=== PATIENT | female | born 1985 | race Caucasian/White ===

== ENCOUNTER 2022-11-09 03:27 | Inpatient (IN) | payer BC, SELFPAY ==
[2022-11-09] VITALS (29 sets, daily range): BP systolic 85–124; BP diastolic 44–76; PULSE 78–101; RESP 12–22; TEMP 36.5–43; O2SAT 91–100; BMI 44.4; BMI 44.1
--- NOTE | 2022-11-09 03:47 | CT_ITS ---
PROCEDURE INFORMATION: Exam: CT Abdomen And Pelvis With Contrast Exam date and time: 11/09/2022 4:24 AM Age: 37 years old Clinical indication: Abdominal pain; Prior surgery; Surgery type: Gastric sleeve; Patient HX: C/O generalized abd pain and pelvic pain x1 week. Worsening within last 2 days TECHNIQUE: Imaging protocol: Computed tomography of the abdomen and pelvis with contrast. Radiation optimization: All CT scans at this facility use at least one of these dose optimization techniques: automated exposure control; mA and/or kV adjustment per patient size (includes targeted exams where dose is matched to clinical indication); or iterative reconstruction. Contrast material: ISOVUE; Contrast volume: 75 ml; Contrast route: IV; COMPARISON: No relevant prior studies available. FINDINGS: Diaphragm: Small hiatal hernia. Liver: Mildly enlarged. Gallbladder and bile ducts: No calcified stones. No ductal dilation. Pancreas: Unremarkable. No ductal dilation. Spleen: Mildly enlarged. Adrenal glands: No mass. Kidneys and ureters: Unremarkable. No significant hydronephrosis. Stomach and bowel: Postsurgical changes of stomach. Fluid within small bowel. Fluid/loose stool within large bowel. Apparent mild mural/fold thickening of several loops of proximal and mid small bowel. No associated inflammatory stranding. No obstruction. Appendix: No findings to suggest appendicitis. Intraperitoneal space: Trace free fluid within pelvis. No free air. Vasculature: Unremarkable. No aneurysm. Lymph nodes: No pathologically enlarged lymph nodes. Urinary bladder: Unremarkable. Reproductive: 7.8 x 5.6 x 5.2 cm hypodense lesion within RIGHT adnexal region. 4.7 x 4.0 x 4.7 cm septated hypodense lesion within LEFT adnexal region. Bones/joints: No acute fracture. Soft tissues: Tiny umbilical hernia containing fat. IMPRESSION: 1. Probable mild enteritis. Clinical correlation is needed. 2. Adnexal lesions, incompletely characterized. Recommend ultrasound. 3. Hepatosplenomegaly.
[2022-11-09 04:00] LABS: Basophils # 0.1 K/mm3 (0-0.2); Basophils % 0.6 % (0.1-2.0); Eosinophils # 0.1 K/mm3 (0.0-0.4); Eosinophils % 0.8 % (0.1-12.0); Hematocrit 39.9 % (37.0-47.0); Lymphocytes # 1.6 K/mm3 (0.7-4.5); Lymphocytes % 10.2 % (10-50); Mean Corpuscular HGB Conc 32.7 g/dL (31.8-35.4); Mean Corpuscular Hemoglobin 26.5 pg (27.0-31.2); Mean Corpuscular Volume 80.9 fl (81-99); Monocytes # 0.5 K/mm3 (0.1-1.0); Monocytes % 3.2 % (1.7-9.3); Neutrophils % 85.1 % (37.0-80.0); Platelet Count 447 K/mm3 (142-424); Red Blood Count 4.93 M/mm3 (4.20-5.40); Red Cell Distribution Width 13.3 % (11.5-17.5); White Blood Count 15.2 K/mm3 (4.8-10.8)
[2022-11-09 04:01] LABS: Chloride 101 mmol/L (98-107); Potassium 4.1 mmoL/L (3.5-5.1); Sodium 138 mmol/L (136-145)
[2022-11-09 04:03] LABS: MANUAL DIFFERENTIAL MANUAL DIFFERENTIAL (MANUAL DIFF)
[2022-11-09 04:04] LABS: Alanine Aminotransferase 40 U/L (12-78); Albumin Level 4.1 g/dl (3.5-5.0); Alkaline Phosphatase 125 U/L (38-126); Amylase 45 U/L (30-110); Anion Gap 11.1 mEq/L (5-15); Aspartate Amino Transferase 34 U/L (14-36); Bilirubin,Total 0.8 mg/dl (0.2-1.3); Blood Urea Nitrogen 11 mg/dl (7-17); Calcium 9.3 mg/dl (8.4-10.2); Carbon Dioxide 30 mmol/L (22.0-30.0); Creatinine Clearance Estimated 101 mL/min (50-200); Estimated Glomerular Filt Rate 93 ml/min (>60); GFR (African American) 113 ML/MIN (>60); Glucose 154 mg/dl (74-100); HCG Qualitative, Serum Negative (Negative); Lipase 19 U/L (23-300)
[2022-11-09 04:05] LABS: Albumin/Globulin Ratio 1.2 (1.1-1.8); Globulin 3.5 g/dL (1.3-3.2); Total Protein,Serum 7.6 g/dl (6.3-8.2)
[2022-11-09 04:43] LABS: Lymphocytes % 14 % (10-50); Monocytes % 2 % (2-9); Neutrophils % 84 % (42-76); Total Cells Counted 100
[2022-11-09 04:44] LABS: Platelet Estimate Normal; RBC Morphology Normal
--- NOTE | 2022-11-09 04:51 | HMH.EDABDPAI ---
Discharge Plan Disposition Patient Disposition: Still a Patient Referrals Follow up/Referrals: Gilda West APRN [Primary Care Provider] - See instructions Clinical Impressions Clinical Impression: Abdominal pain, Pelvic mass in female Instructions Patient Instructions: DI for Acute Abdominal Pain Discharge ED Provider: Barry Multani Abdominal Pain HPI <Barry Multani MD - Last Filed: 11/09/22 08:08> General Chief Complaint: Abdominal Pain Stated Complaint: Constipation for a week; abdominal pain Time Seen by Provider: 11/09/22 04:51 Mode of Arrival: Ambulatory Source of Information: Patient and Medical Record Limitations: No Limitations Description of Symptoms (Recalled from ER Triage Doc. by RN): pt c/o abd pain with n/v x 1 week, also pt states no bowel movement for over a week History of Present Illness HPI narrative: abd pain with no bm x 1 week but has still flatus and no sig vomiting - using miralax over the last few days complaint: abdominal pain Onset (ago): day(s) Consistency: intermittent Location: diffuse Severity: moderate Quality: cramping Associated symptoms: constipation Related Data Allergies Allergy/AdvReac Type Severity Reaction Status Date / Time No Known Allergies Allergy Verified 11/09/22 03:46 PFSH <Barry Multani MD - Last Filed: 11/09/22 08:08> PFSH Disclaimer: The information contained in this section may have been updated after the patient was seen, as this information can be updated by other users. Social History (Updated 11/09/22 @ 08:08 by Barry Multani MD) Smoking Status: Never smoker alcohol intake: never current occupational status: employed Travel in the last 8 weeks: None <Barry Multani MD - Last Filed: 11/09/22 08:08> ROS Obtained: Yes All systems reviewed & no additional complaints except as documented Physical Exam <Barry Multani MD - Last Filed: 11/09/22 08:08> General General appearance: alert and obese Head Head exam: normocephalic Eye Eye exam: Present PERRL and EOMI; Absent scleral icterus ENT ENT exam: Present mucous membranes moist Neck Neck exam: Present trachea midline Respiratory Respiratory exam: Absent respiratory distress Cardiovascular Cardiovascular exam: Present regular rate Abdominal Exam Abdominal exam: Present soft, tenderness and diminished bowel sounds; Absent distention, guarding, rebound or rigidity Abdominal tenderness: Present diffuse and moderate Rectal Exam Rectal exam: Present normal rectal tone; Absent fecal impaction Extremities Exam Extremities exam: Present full ROM Neurological Exam Neurological exam: Present alert, oriented X3 and CN II-XII intact Psychiatric Psychiatric exam: Present normal affect Skin Skin exam: Absent rash Medical Decision Making <Barry Multani MD - Last Filed: 11/09/22 08:08> Medical Records Medical records reviewed: Yes I reviewed the patient's medical records. Juan A Inquiry Pt receiving controlled substance: No Vital Signs: 11/09/22 03:30 11/09/22 08:26 11/09/22 08:30 Temperature 97.7 F Temperature Source Oral Pulse Rate 91 H 97 H Pulse Rate [Right] 85 Respiratory Rate 16 18 20 Blood Pressure 92/55 L 98/59 L Blood Pressure [Right Arm] 110/52 L Blood Pressure Mean 67 72 Blood Pressure Mean [Right Arm] 71 02 Sat by Pulse Oximetry 100 99 97 11/09/22 08:34 Temperature Temperature Source Pulse Rate 96 H Pulse Rate [Right] Respiratory Rate 18 Blood Pressure 95/44 L Blood Pressure [Right Arm] Blood Pressure Mean 65 Blood Pressure Mean [Right Arm] 02 Sat by Pulse Oximetry 98 Lab Data Lab results reviewed: Yes I reviewed the patient's lab results. Lab Results 11/09/22 03:40: WBC 15.2 H, RBC 4.93, Hgb 13.0, Hct 39.9, MCV 80.9 L, MCH 26.5 L, MCHC 32.7, RDW 13.3, Plt Count 447 H, MPV 8.0, Neut % (Auto) 85.1 H, Lymph % (Auto) 10.2, [place] % (Auto) 3.2, Eos % (Auto) 0.8, Baso % (Auto) 0.6, Neut # (Auto) 13.0 H, Lymph # (Auto)
[2022-11-09 05:23] LABS: Free T4 (Free Thyroxine) 1.18 ng/dl (0.78-2.19)
[2022-11-09 05:38] LABS: Thyroid Stimulating Hormone 1.43 uIU/mL (0.465-4.68)
--- NOTE | 2022-11-09 06:30 | US_ITS ---
FINAL REPORT CLINICAL HISTORY: abnormal ct FINDINGS: Transvaginal sonographic images of the pelvis were obtained. The uterus measures 9.5 x 5.6 x 3.9 cm. The endometrium measures 8 mm, which is within normal limits for patient age. No uterine masses identified. The right ovary measures 8.1 cm in length and left ovary measures 5.5 cm in length. Normal blood flow seen to the ovaries. There is a right ovarian cyst measuring 6.6 cm. There is a left ovarian cyst measuring 4.4 cm, favor a mildly complicated cyst. There is a moderate amount of complex free fluid in the cul-de-sac which may represent hemorrhage. There is a 17 mm echogenic focus in the cul-de-sac of uncertain etiology, could represent a blood clot. IMPRESSION: Complex free fluid in the cul-de-sac may represent a hemorrhage. 17 mm echogenic focus in the cul-de-sac of uncertain etiology, could represent a blood clot. Recommend follow-up ultrasound in 6-8 weeks. Reviewed, Interpreted and Dictated by Hector Becerra III, MD Transcribed by Brittny Chirinos Authenticated and [facility]
--- NOTE | 2022-11-09 06:51 | PC.NURSE ---
Rechecked pt condition. No needs voiced at this time. Pt waiting on U/S.
--- NOTE | 2022-11-09 08:12 | PC.NURSE ---
pt back from u/s
--- NOTE | 2022-11-09 08:48 | PC.NURSE ---
speaking with at bs
[2022-11-09 09:28] LABS: Microscopic, Urine URINE MICROSCOPIC (MICROSCOPIC)
[2022-11-09 09:32] LABS: Appearance,Urine SL CLOUDY (Clear); Blood, Urine Negative (Negative); Color,Urine DK YELLOW (Yellow); Glucose,Urine (UA) Negative (Negative); Ketones,Urine Negative (Negative); Leukocyte Esterase,Urine TRACE (Negative); Nitrate,Urine POSITIVE (Negative); PH,Urine 5.5 (5.0-8.5); Protein,Urine 1+ (Negative); Urobilinogen,Urine 0.2 EU/dl (0.2)
[2022-11-09 10:00] LABS: Bilirubin,Urine Negative (Negative)
[2022-11-09 10:22] LABS: Bacteria,Urine Trace /lpf; RBC,Urine Occasional #/hpf (0-3); WBC,Urine 50-100 #/hpf (0-3)
--- NOTE | 2022-11-09 12:00 | EXP.ANES.CKL ---
[facility] Disclaimer: The information contained in this section may have been updated after the patient was seen, as this information can be updated by other users. Social History (Updated 11/09/22 @ 08:08 by Barry Multani MD) Smoking Status: Never smoker alcohol intake: never substance use type: denies use current occupational status: employed Travel in the last 8 weeks: None [facility] Anesthesia Checklist Patient Identification Patient Identification: Verbal (Name & ) Structural Data Admitted From: Emergency Dept Planned Operative Procedure/s: dx lap Consent for Planned Operative Procedure(s) Verified: Yes Airway Assessment C-Spine Mobility Assessed: Yes TMJ Mobility Assessed: Yes Dentition: Good Dentition Neurological Assessment Level of Consciousness: Awake, Alert and Appropriate Anesthesia Plan Anesthesia Risk discussed: Yes Anesthesia Plan: Verified Anesthesia Type: General
--- NOTE | 2022-11-09 12:42 | HMH.PHAINT1 ---
Pharmacy Intervention Comments: MEDICATION RECONCILIATION COMPLETED ON PATIENT USING EXTERNAL FILL HISTORY FROM PHARMACY. -SUZAN DOE, ASHLIED
--- NOTE | 2022-11-09 12:57 | SUR.OPER ---
1253-family updated at this time
--- NOTE | 2022-11-09 12:59 | SUR.OPER ---
1255 family provided with an update
--- NOTE | 2022-11-09 13:37 | EXP.ANES.I ---
[facility] Anesthesia Record Part I Anesthesia Record I Intake, IV Amount: 1,800 Estimated blood loss (mL): 0 Urine output (mL): 0 Blood Pressure: 121/72 SaO2: 93 Pulse Rate: 98 Respiratory Rate: 12 Temperature: 99.7 F Patient is:: Awake and Stable Stable to PACU at:: 13:35
--- NOTE | 2022-11-09 14:22 | SUR.PHASEI ---
1400 called and gave detailed report to Renetta Palma RN [id number] transported via bed to OB room. vital signs stable. transported on 2L oxygen via nasal cannula. no pain reported at this time. Left in stable condition with Adelaida Schwab RN and Renetta Palma RN at bedside.
--- NOTE | 2022-11-09 14:58 | EXP.HP ---
History of Present Illness *Admission Date: 11/09/22 *Reason for visit:: abdominal pain *History of present illness: 37 yo presented to [facility] ED early in the morning of 11/09/22 with a complaint of abdominal pain She reports that this pain began 1 week ago, as a generalized pain in abdomen and pelvis, and that she felt achy all over, as with an acute illness. The pain got progressively worse over this week, and has woken her out of sleep the past 2 nights. When she arrived at [facility], she had CT abd/pelvis performed as part of evaluation This imaging noted bilateral adnexal masses and ultrasound was recommended as further evaluation: The uterus measures 9.5 x 5.6 x 3.9 cm. The endometrium measures 8mm.? No uterinemasses identified. The right ovary measures 8.1 cm in length and left ovary measures 5.5 cm in length. Normal blood flow seen to the ovaries.? There is a right ovarian cyst measuring 6.6 cm. There is a left ovarian cyst measuring 4.4 cm, favor a mildly complicated cyst.? There is a moderate amount of complex free fluid in the cul-de-sac which may represent hemorrhage.? There is a 17 mm echogenic focus in the cul-de-sac of uncertain etiology, could represent a blood clot. Hgb was normal (13) but she had severe tenderness on abdominal exam and she was advised to proceed with diagnostic laparoscopy over concern for possible actively bleeding hemorrhagic cyst Urine analysis also had positive nitrites and she was given a dose of IV ancef PFSH PFSH Disclaimer: The information contained in this section may have been updated after the patient was seen, as this information can be updated by other users. Surgical History (Updated 11/09/22 @ 19:20 by Sulma Clay MD) H/O gastric sleeve Social History (Updated 11/09/22 @ 12:02 by Gen Guido CRNA) Smoking Status: Never smoker alcohol intake: never substance use type: denies use current occupational status: employed Travel in the last 8 weeks: None Review of Systems Review of Systems Review of systems:: pertinent systems reviewed and negative unless documented below Constitutional Constitutional: Denies chills, Denies fever(s), Reports poor appetite and Reports malaise *Gastrointestinal Gastrointestinal: Reports abdominal pain, Reports constipation, Denies nausea and Denies vomiting *Genitourinary Genitourinary: Denies abnormal vaginal bleeding *Musculoskeletal Musculoskeletal: Reports back pain Meds Home Medications and Allergies Home Medications Medication Instructions Recorded Confirmed Type ferrous gluconate 240 mg (27 mg 240 mg PO BID Supplement 11/09/22 11/09/22 History iron) tablet (Ferate) hydrochlorothiazide 12.5 mg tablet 12.5 mg PO BID Hypertension 11/09/22 11/09/22 History New Prescriptions to Start Prescriptions: Allergies Allergy/AdvReac Type Severity Reaction Status Date / Time No Known Allergies Allergy Verified 11/09/22 03:46 Exam Data for Last 24 hours Vital signs and Labs for Last 24 Hours: Temp Pulse Resp BP Pulse Ox 98.8 F 91 H 18 118/68 93 L 11/09/22 14:05 11/09/22 14:05 11/09/22 14:05 11/09/22 14:05 11/09/22 14:05 Laboratory Results - last 24 hr 11/09/22 03:40: WBC 15.2 H, RBC 4.93, Hgb 13.0, Hct 39.9, MCV 80.9 L, MCH 26.5 L, MCHC 32.7, RDW 13.3, Plt Count 447 H, MPV 8.0, Neut % (Auto) 85.1 H, Lymph % (Auto) 10.2, [place] % (Auto) 3.2, Eos % (Auto) 0.8, Baso % (Auto) 0.6, Neut # (Auto) 13.0 H, Lymph # (Auto) 1.6, [place] # (Auto) 0.5, Eos # (Auto) 0.1, Baso # (Auto) 0.1, Total Counted 100, Neutrophils % (Manual) 84 H, Lymphocytes % (Manual) 14, Monocytes % (Manual) 2, Platelet Estimate Normal, RBC Morphology Normal 11/09/22 03:40: Sodium 138, Potassium 4.1, Chloride 101, Carbon Dioxide 30, Anion Gap 11.1, BUN 11, Creatinine 0.70, Estimated Creat Clear 101, Estimated GFR 93, Est GFR ( Amer) 113, Glucose 154 H, Calcium 9.3, Total Bilirubin 0.8, AST 34, ALT 40, Alkaline Phosphatase 125, Total Protein
--- NOTE | 2022-11-09 15:17 | EXP.PHA.CONS ---
Pharmacy Consult Date: 11/09/22 Time: 15:18 Referring provider: DR. SALAS Reason for Consult:: GENTAMICIN DOSING Allergies Allergy/AdvReac Type Severity Reaction Status Date / Time No Known Allergies Allergy Verified 11/09/22 03:46 Home Medications Medication Instructions Recorded Confirmed Type ferrous gluconate 240 mg (27 mg 240 mg PO BID Supplement 11/09/22 11/09/22 History iron) tablet (Ferate) hydrochlorothiazide 12.5 mg tablet 12.5 mg PO BID Hypertension 11/09/22 11/09/22 History New Prescriptions to Start Prescriptions: Height: 1.68 m Weight: 124.738 kg Laboratory Results:: Laboratory Results - last 24 hr 11/09/22 03:40: WBC 15.2 H, RBC 4.93, Hgb 13.0, Hct 39.9, MCV 80.9 L, MCH 26.5 L, MCHC 32.7, RDW 13.3, Plt Count 447 H, MPV 8.0, Neut % (Auto) 85.1 H, Lymph % (Auto) 10.2, [place] % (Auto) 3.2, Eos % (Auto) 0.8, Baso % (Auto) 0.6, Neut # (Auto) 13.0 H, Lymph # (Auto) 1.6, [place] # (Auto) 0.5, Eos # (Auto) 0.1, Baso # (Auto) 0.1, Total Counted 100, Neutrophils % (Manual) 84 H, Lymphocytes % (Manual) 14, Monocytes % (Manual) 2, Platelet Estimate Normal, RBC Morphology Normal 11/09/22 03:40: Sodium 138, Potassium 4.1, Chloride 101, Carbon Dioxide 30, Anion Gap 11.1, BUN 11, Creatinine 0.70, Estimated Creat Clear 101, Estimated GFR 93, Est GFR ( Amer) 113, Glucose 154 H, Calcium 9.3, Total Bilirubin 0.8, AST 34, ALT 40, Alkaline Phosphatase 125, Total Protein 7.6, Albumin 4.1, Globulin 3.5 H, Albumin/Globulin Ratio 1.2, Amylase 45, Lipase 19 L 11/09/22 03:40: Serum HCG, Qual Negative 11/09/22 03:40: Free T4 1.18 11/09/22 03:40: TSH 1.43 11/09/22 09:24: Urine Color Dk yellow, Urine Appearance Sl cloudy, Urine pH 5.5, Ur Specific [place] 1.020, Urine Protein 1+, Urine Glucose (UA) Negative, Urine Ketones Negative, Urine Blood Negative, Urine Nitrate Positive, Urine Bilirubin Negative, Urine Urobilinogen 0.2, Ur Leukocyte Esterase Trace, Urine RBC Occasional, Urine WBC 50-100, Ur Squamous Epith Cells 10-20, Urine Bacteria Trace Assessment and Plan Assessment and plan all Dx Assessment and Plan for all problems:: Pharmacokinetic dosing service Age: 37 yo Serum creatinine: 0.7 mg/dL Height: 66.1 Inches Weight (kg): 124.7 Assessment: IBW (kg): 59.53 Dosing wt(kg): 85.6 Estimated Creatinine clearance (ml/min): 101.4 CRCL method: Cockcroft and Gault using ibw(default). Drug selected: Gentamicin Loading dose (mg): 0 Vd (liters): 25.7 (factor used: 0.3 L/kg) Zoltan (hr-1): 0.237 Half life (hrs): 2.92 Recommended dose: 480 mg Interval: 24 hrs Infusion time (hrs): 1 Predicted peak (mcg/mL): 16.7 Predicted trough (mcg/mL): 0.07 Recommendations: Give Gentamicin 480 mg q 24 hrs with an expected Cpeak of 16.7 mcg/ml and an expected Ctrough of 0.07 mcg/ml.
--- NOTE | 2022-11-09 18:32 | PC.NURSE ---
pt urged to use the restroom at this time, pt reports not needing to pee at this time and doesnt want to try to pee right now, will pass in report.
--- NOTE | 2022-11-09 19:10 | PC.NURSE ---
REPORT RECIEVED FROM NEALRN
--- NOTE | 2022-11-09 19:22 | EXP.OP.NOTE ---
Date of procedure: 11/09/22 Pre-op Diagnosis:: 1. Bilateral adnexal masses 2. Pelvic fluid suspicious for hemoperitoneum 3. Abdominal/pelvic pain 4. UTI Post-op Diagnosis:: 1. Right TOA 2. Edematous right fallopian tube 3. Left ovarian cyst 4. Extensive purulent drainage in abdomen/pelvis 5. Extensive abdominal/pelvic adhesions 6. UTI Procedure performed:: Diagnostic laparoscopy Drainage of right TOA Irrigation of pelvis and abdomen Surgeon:: Sulma Clay MD READING ASSISTANT:: Gen Guido Anesthesia: GETA Estimated blood loss (mL): 5 Operative findings:: Extensive purulent drainage within abdomen and pelvis Large right TOA Edema right fallopian tube Extensive abdominal and pelvic adhesions Small left ovarian cyst Operative note:: The patient was taken to the operating room and general anesthesia was administered. She was prepped/draped in lithotomy position. The bladder was drained and urine culture collected. A Humi uterine manipulator was placed without difficulty. Gloves were changed and attention was turned to the abdomen. Lidocaine 2% was injected subcutaneously (5cc) in the umbilical fold and suprapubic region. A 5mm skin incision was made in the umbilical fold and the verees needle was inserted through the peritoneum and into the abdominal cavity in standard fashion. The abdomen was insufflated with CO2 gas. A 5mm non-bladed trocar was inserted directly into the abdominal cavity and appropriate placement was confirmed with the laparoscope. An extra-long trocar was necessary because of the patient's body habitus. No intra-abdominal injuries occurred during entry into the abdominal cavity, as confirmed visually with the laparoscope. The patient was placed in trendelenburg and a 5mm skin incision was made 2cm above the pubic symphysis. A 5mm non-bladed trocar was inserted under direct visualization, without complication. The uterus was elevated out of the pelvis in order to better visualize the anatomy. A survey of the pelvis and abdomen revealed a copious amount of purulent drainage draping all of her organs. the uterus, round ligaments and fallopian tubes were all covered in purulent drainage as well as a more solidified exudate. The bowel was also covered in this drainage, and the pelvic cul-de-sac contained a moderate amount of purulent drainage. There was no hemoperitoneum present, and the clinical picture observed was that the fluid seen on imaging had been purulence and not blood. The pelvis was suctioned thoroughly, and the fluid sent for culture. The pelvis was then irrigated with lactated ringers containing 2gm Ancef. A blunt probe was used through the suprapubic trocar to examine the anatomy. As the uterus was elevated, the left ovary was able to be mobilized and contained a small ovarian cyst, which was covered in the filmy exudate. The right adnexa was extremely adhesed in the cul de sac, and attempts at blunt dissection only caused a large amount of purulence to drain from the abscess in right ovary. This drainage was evacated with the suction and the pelvis irrigated repeatedly. The right fallopian tube was very edematous, and adhesed to the pelvic structures on the right, limiting visibility in the cul-de-sac. The bowel was also adhesed to both itself and the right pelvic sidewall. A thorough attempt to visualize the appendix was unsuccessful, but previous CT had documented that appendix appeared normal. Once all of the purulent drainage had been evacuated and 1 liter of ancef solution had been used to irrigate the pelvis, the instruments were removed. The abdomen was then evacuated of gas and all trocars removed. The skin incisions were closed with 4-0 monocryl and dermabond. The uterine manipulator was removed. She was given additional antibiotics to cover TOA (clindamycin and gentamycin) All sponge/lap/needle/instrument counts correct. Total EBL: 5 cc. The patient was taken out of lithotomy position, extubated a
[2022-11-09 21:58] LABS: Gentamicin,Random 5.7 ug/ml
--- NOTE | 2022-11-09 22:30 | PC.NURSE ---
PT DENIED THE URGE TO VOID,EXPLAINED TO PT THE NEED TO TRY AND VOID,ASSISTED PT UP TO BATHROOM,SHE VOIDED 100ML,BLOOD NOTED IN MEASSURING HAT AND WHEN PT WIPED SHE HAD SOME DARK RED BLOOD,I ASKED IF IT WAS TIME FOR HER PERIOD AND SHE SAID NEXT WEEK,TOLD HER THIS SURGERY COULD HAVE TRIGGERED IT TO COME SOONER,BUT SHE WOULD POSSIBLY HAVE SOME BLEEDING FROM THE SURGERY,PT V/U.PAD AND MESH PANTIES PROVIDED
--- NOTE | 2022-11-09 22:55 | PC.NURSE ---
MEDICATED WITH OXYCODONE 10MG PO FOR PAIN OF 8 ON SCALE OF 0-10.HAD PT USE AN INCENTIVE SPIROMETER AND SHE WAS ONLE ABLE TO ACHIEVE 500ML,ENCOURAGED TO USE OF IT WHILE AWAKE,PT V/U
--- NOTE | 2022-11-09 23:45 | PC.NURSE ---
SPOKE WITH JOSEF CARBAJAL AND GAVE HIM THE RANDOM GENTAMICIN LEVEL OF 5.7 AND TOLD HIM SHE HAD ANOTHER ONE ORDERED FOR 0600 IN AM.PT DOES NOT GET GET ANOTHER DOSE OF GENT UNTIL 1600 TOMORROW.HE SAID OUR PHARMACY WOULD ADDRESS IT TOMORROW.
[2022-11-10] VITALS (12 sets, daily range): BP systolic 94–146; BP diastolic 53–85; PULSE 67–110; RESP 17–24; TEMP 36.6–37.2; O2SAT 90–99; BMI 49.8
--- NOTE | 2022-11-10 03:11 | PC.NURSE ---
PT HAS SLEPT SINCE SHE WAS GIVEN OXYCODONE AT 2300.THIS MORNING WITH GIVING HER LEONARDA.TORADOL AND HANGING HER AMPICILLIN,SHE IS MOANING AND SAID HER PAIN WAS A 6 ON SCALE OF 0-10.LUNGS CLEAR AND WITH DEEP BREATHING SAT LEVEL IS A 96% ON 2 LITERS OF O2 PER NC.BOWEL SOUNDS HYPOACTIVE,NO DRAINAGE TO THE 2 LAPSITES,AFEBRILE,B/P REMAINS LOW AT 94/53,HR 67,RESP.17.PT HAS ONLY VOIDED ONCE THUS FAR THIS SHIFT,PT DENIES ANY NEED TO VOID.IV SITE IN RAC INFUSING WITHOUT DIFF.LR AT 125/HR
--- NOTE | 2022-11-10 06:30 | PC.NURSE ---
ASSISTED PT UP TO BATHROOM AND SHE VOIDED 200ML KIERAN COLOR URINE.PT BRUSHED HER TEETH AND WANTED TO AMBULATE IN PERALES.
--- NOTE | 2022-11-10 07:13 | PC.NURSE ---
REPORT GIVEN TO SUGARRN
[2022-11-10 07:58] LABS: Basophils % 0.1 % (0.1-2.0); Eosinophils # 0.1 K/mm3 (0.0-0.4); Eosinophils % 0.3 % (0.1-12.0); Hematocrit 31.6 % (37.0-47.0); Hemoglobin 10.2 g/dL (12.2-16.2); Lymphocytes # 1.1 K/mm3 (0.7-4.5); Lymphocytes % 6.4 % (10-50); Mean Corpuscular HGB Conc 32.2 g/dL (31.8-35.4); Mean Corpuscular Hemoglobin 26.3 pg (27.0-31.2); Mean Corpuscular Volume 81.6 fl (81-99); Mean Platelet Volume 8.8 fl (7.4-10.4); Monocytes # 0.5 K/mm3 (0.1-1.0); Monocytes % 2.5 % (1.7-9.3); Neutrophils # 16.3 K/mm3 (1.8-7.8); Neutrophils % 90.7 % (37.0-80.0); Platelet Count 360 K/mm3 (142-424); Red Blood Count 3.87 M/mm3 (4.20-5.40); Red Cell Distribution Width 13.5 % (11.5-17.5); White Blood Count 17.9 K/mm3 (4.8-10.8)
--- NOTE | 2022-11-10 07:58 | P.PN_ITS ---
[facility] Disclaimer: The information contained in this section may have been updated after the patient was seen, as this information can be updated by other users. Surgical History (Updated 11/09/22 @ 19:20 by Sulma Clay MD) H/O gastric sleeve Social History (Updated 11/09/22 @ 12:02 by Gen Guido CRNA) Smoking Status: Never smoker alcohol intake: never substance use type: denies use current occupational status: employed Travel in the last 8 weeks: None [facility] Anesthesia Checklist Patient Identification Patient Identification: Verbal (Name & ) Structural Data Admitted From: Home Planned Operative Procedure/s: d/c jewel bo Consent for Planned Operative Procedure(s) Verified: Yes Airway Assessment C-Spine Mobility Assessed: Yes TMJ Mobility Assessed: Yes Dentition: Good Dentition Neurological Assessment Level of Consciousness: Awake, Alert and Appropriate Anesthesia Plan Anesthesia Risk discussed: Yes Anesthesia Plan: Verified ASA Class: II Anesthesia Type: General
[2022-11-10 08:01] LABS: MANUAL DIFFERENTIAL MANUAL DIFFERENTIAL (MANUAL DIFF)
[2022-11-10 08:48] LABS: Lymphocytes % 5 % (10-50); Monocytes % 1 % (2-9); Neutrophils % 94 % (42-76); Platelet Estimate Normal; RBC Morphology Normal; Total Cells Counted 100
--- NOTE | 2022-11-10 11:08 | P.PNANES_ITS ---
[facility] Anesthesia Record Part II Anesthesia Record Part II Discharge Time: 14:05 Destination: Second Floor PACU nurse assessment reviewed?: Yes Patient Condition:: Good Anesthesia Complications:: None Swallowing reflex intact?: Yes Cyanosis?: No Blood Pressure: 112/59 Pulse Rate: 94 Temperature: 98.7 F Mental Status: Alert & Oriented Pain level:: 0 Nausea and/or vomitting:: None Intake, IV Amount: 2,000
--- NOTE | 2022-11-10 11:16 | EXP.PHA.CONS ---
Pharmacy Consult Date: 11/10/22 Time: 11:16 Referring provider: DR. SALAS Reason for Consult:: GENTAMICIN LEVELS Allergies Allergy/AdvReac Type Severity Reaction Status Date / Time No Known Allergies Allergy Verified 11/09/22 03:46 Home Medications Medication Instructions Recorded Confirmed Type ferrous gluconate 240 mg (27 mg 240 mg PO BID Supplement 11/09/22 11/09/22 History iron) tablet (Ferate) hydrochlorothiazide 12.5 mg tablet 12.5 mg PO BID Hypertension 11/09/22 11/09/22 History New Prescriptions to Start Prescriptions: Height: 1.68 m Weight: 124.738 kg Laboratory Results:: Laboratory Results - last 24 hr 11/09/22 21:14: Random Gentamicin 5.7 11/10/22 07:06: Random Gentamicin 1.0 11/10/22 07:06: WBC 17.9 H, RBC 3.87 L, Hgb 10.2 L, Hct 31.6 L, MCV 81.6, MCH 26.3 L, MCHC 32.2, RDW 13.5, Plt Count 360, MPV 8.8, Neut % (Auto) 90.7 H, Lymph % (Auto) 6.4 L, [place] % (Auto) 2.5, Eos % (Auto) 0.3, Baso % (Auto) 0.1, Neut # (Auto) 16.3 H, Lymph # (Auto) 1.1, [place] # (Auto) 0.5, Eos # (Auto) 0.1, Baso # (Auto) 0.0, Total Counted 100, Neutrophils % (Manual) 94 H, Lymphocytes % (Manual) 5 L, Monocytes % (Manual) 1 L, Platelet Estimate Normal, RBC Morphology Normal Assessment and Plan Assessment and plan all Dx Assessment and Plan for all problems:: BASED ON PATIENT FACTORS AND RANDOM GENTAMICIN LEVELS AT 3 HR(5.7) AND 13 HR(1.0), RECOMMEND CONTINUING CURRENT DOSE OF GENTAMICIN AT 480MG IV EVERY 24 HOURS. -ASHLIE SIMSD
--- NOTE | 2022-11-10 12:46 | EXP.ACUTE.PN ---
Subjective *Date: 11/10/22 *Time: 12:46 Interval history: POD #1 diagnostic laparoscopy She feels much better today compared to yesterday, and reports sufficient pain control with minimal medication She is tolerating a regular diet without nausea/vomiting She has remained afebrile but WBC increased from 15.2 to 17.9 Current treatment for TOA with copious purulent drainage in abdomen/pelvis with ampicillin/gentamycin/clindamycin Purulent drainage culture and urine culture both pending Medical Exam Vital signs and Labs for Last 24 Hours: Vital Signs Temp Pulse Pulse Resp BP BP Pulse Ox 11/10/22 12:00 98.2 F 72 18 110/74 99 11/10/22 08:00 98.3 F 70 18 97/56 L 94 L 11/10/22 02:45 97.9 F 67 17 94/53 L 96 11/09/22 22:15 98.3 F 78 18 91/54 L 94 L 11/09/22 20:15 98.0 F 82 17 85/53 L 94 L 11/09/22 20:30 94 L 11/09/22 19:15 98.0 F 85 17 92/54 L 94 L 11/09/22 18:15 98.1 F 88 17 103/65 L 94 L 11/09/22 17:15 79 105/59 L 96 11/10/22 11:09 98.7 F 94 H 112/59 L Intake and Output 11/10/22 11/10/22 11/10/22 03:59 11:59 19:59 Intake Total 3670 / 5470 Output Total 100 / 450 200 / 450 150 / 150 Balance -100 / 5020 3470 / 5020 -150 / -150 Intake: Intake, Total IV Amount 3670 / 5470 Ampicillin Sodium 2 gm In 0.9 % 200 / 200 Sodium Chloride 100 ml @ 200 mls/hr IV Q6H LEONARDA Rx#:[id number] Clindamycin Phosphate/D5w 900 100 / 100 mg In 50 ml @ 100 mls/hr IV Q8H LEONARDA Rx#:[id number] Ringers Solution,Lactated 1,000 1370 / 1370 ml @ 125 mls/hr IV .Q8H LEONARDA Rx #:[id number] Output: Output, Urine Amount 100 / 450 200 / 450 150 / 150 Other: Number of Unmeasured Voids 1 1 Weight 275 lb 0.003 oz Laboratory Results - last 24 hr 11/09/22 21:14: Random Gentamicin 5.7 11/10/22 07:06: Random Gentamicin 1.0 11/10/22 07:06: WBC 17.9 H, RBC 3.87 L, Hgb 10.2 L, Hct 31.6 L, MCV 81.6, MCH 26.3 L, MCHC 32.2, RDW 13.5, Plt Count 360, MPV 8.8, Neut % (Auto) 90.7 H, Lymph % (Auto) 6.4 L, [place] % (Auto) 2.5, Eos % (Auto) 0.3, Baso % (Auto) 0.1, Neut # (Auto) 16.3 H, Lymph # (Auto) 1.1, [place] # (Auto) 0.5, Eos # (Auto) 0.1, Baso # (Auto) 0.0, Total Counted 100, Neutrophils % (Manual) 94 H, Lymphocytes % (Manual) 5 L, Monocytes % (Manual) 1 L, Platelet Estimate Normal, RBC Morphology Normal I & O for Labs for Last 24 Hours: Intake & Output 11/08/22 11/09/22 11/10/22 11/11/22 11:59 11:59 11:59 11:59 Intake Total 5470 / 5470 Output Total 300 / 450 150 / 150 Balance 5170 / 5020 -150 / -150 Weight 275 lb 275 lb 0.003 oz Microbiology Reports for the Last 24 Hours: Microbiology 11/09/22 11:45 Peritoneal Fluid - Abscess Body Fluid Culture - Preliminary NO GROWTH AFTER 24 HOURS 11/09/22 09:24 Urine,Clean Catch Urine Culture - Preliminary NO GROWTH AFTER 24 HOURS ENT: Present mucous membranes moist Neck: Present normal inspection Respiratory: Present CTA bilaterally; Absent respiratory distress Cardiac: Present Reg Rate and Rhythm GI: Present soft and tenderness; Absent distention (female): Present deferred Extremities: Absent tenderness or edema Skin: Present intact and dry Assessment and Plan *Assessment and plan (1) Pelvic mass in female: Status: Acute Category: Medical Code(s): R19.00 - Intra-abdominal and pelvic swelling, mass and lump, unspecified site (2) TOA (tubo-ovarian abscess): Status: Acute Category: Medical Code(s): N70.93 - Salpingitis and oophoritis, unspecified (3) Purulent abscess: Status: Acute Category: Medical Code(s): L02.91 - Cutaneous abscess, unspecified (4) Right pyosalpinx: Status: Acute Category: Medical Code(s): N70.93 - Salpingitis and oophoritis, unspecified (5) UTI (urinary tract infection), bacterial: Status: Acute
--- NOTE | 2022-11-10 14:20 | PC.NURSE ---
1300- PT AMBULATING IN HALLWAY, COMPLETED 2 ROUNDS. 1330- PT UP TO SHOWER WITH STANDBY ASSIST, BED LINENS CHANGED AT THIS TIME.
--- NOTE | 2022-11-10 17:28 | XR_ITS ---
PROCEDURE INFORMATION: Exam: XR Chest Exam date and time: 11/10/2022 6:37 PM Age: 37 years old Clinical indication: Dyspnea; Prior surgery; Surgery date: Post-operative (0-2 days); Additional info: Increased dyspnea TECHNIQUE: Imaging protocol: Radiologic exam of the chest. Views: 1 view. COMPARISON: CT ANGIO CHEST PE PROTOCOL 11/10/2022 6:20 PM FINDINGS: Lungs: Low lung volumes. Pulmonary vasculature grossly normal. Bandlike alveolar densities in the lung bases and to a lesser degree the bilateral mid lung distributions, most consistent with atelectasis related to low lung volumes. CT at 6:23 p.m. confirms features of atelectasis rather than infiltrate. Pleural spaces: The trace bilateral pleural effusions seen on CT are not well visualized radiographically. No pneumothorax. Heart/Mediastinum: Heart size normal. No tracheal/mediastinal shift. Bones/joints: No acute osseous abnormalities are identified. Mild thoracic spondylosis. Intraperitoneal space: Trace subdiaphragmatic free air consistent with patient's recent surgery. IMPRESSION: 1. Low lung volumes with moderate basilar postoperative atelectasis bilaterally. 2. Trace basilar pleural effusions seen on CT are not well visualized radiographically. 3. Trace subdiaphragmatic air beneath the right hemidiaphragm is consistent with clinically described recent surgery performed since yesterday's abdominal CT.
--- NOTE | 2022-11-10 17:28 | CT_ITS ---
PROCEDURE INFORMATION: Exam: CTA Chest With Contrast Exam date and time: 11/10/2022 6:20 PM Age: 37 years old Clinical indication: Dyspnea; Prior surgery; Surgery date: Post-operative (0-2 days); Additional info: Increased dyspnea TECHNIQUE: Imaging protocol: Computed tomographic angiography of the chest with contrast. 3D rendering (Not supervised by radiologist): MIP and/or 3D reconstructed images were created by the technologist. Radiation optimization: All CT scans at this facility use at least one of these dose optimization techniques: automated exposure control; mA and/or kV adjustment per patient size (includes targeted exams where dose is matched to clinical indication); or iterative reconstruction. Contrast material: ISOVUE 370; Contrast volume: 70 ml; Contrast route: INTRAVENOUS (IV); COMPARISON: CT ABDOMEN PELVIS W CON 11/09/2022 4:24 AM FINDINGS: Pulmonary arteries: The pulmonary arteries enhance appropriately with no evidence of pulmonary embolism. Motion artifact produces slight exam limitation in the lung bases and just above the hilar level, with no suspected emboli visualized. Aorta: The aorta is unremarkable. No aortic aneurysm or dissection. No mediastinal hematoma. Thyroid: The visualized thyroid gland demonstrates no gross abnormality. Lungs: No acute tracheobronchial abnormalities. No gross pulmonary infiltrates or edema pattern. Moderate atelectasis in the mid and basilar lung humphreys. No pulmonary mass lesions are identified. Trace dependent simple bilateral basilar pleural effusions. Pleural spaces: No pneumothorax. Heart: Overall heart size mildly enlarged, with dilated right atrium and right ventricle. There is moderate subdiaphragmatic contrast reflux into the IVC and hepatic veins suggestive of CHF. No coronary artery calcification. No pericardial effusion. Lymph nodes: No supraclavicular or axillary adenopathy. No mediastinal or hilar adenopathy. Diaphragm: Small hiatal hernia. Stomach and bowel: Prior gastric sleeve without gross anastomotic complication. Bones/joints: No acute osseous abnormalities are identified. Soft tissues: Mild-moderate soft tissue edema in the lateral upper abdominal ochoa bilaterally, possibly volume overload or mild changes of generalized anasarca. Small amount of postoperative soft tissue air in the left anterior abdominal wall extraperitoneal tissues, and small volume peritoneal free air over the anterior liver margin, consistent with the patient's history of interval surgery since yesterday. IMPRESSION: 1. No evidence of pulmonary embolism or aortic dissection. 2. Low lung volumes with moderate atelectasis in the mid and lower lung humphreys. No suspected infiltrates or pulmonary edema pattern. 3. Overall heart size mildly enlarged, with moderately dilated right atrium and ventricle and subdiaphragmatic contrast reflux into the hepatic veins suggesting possible CHF. Correlate clinically for signs of right heart failure. 4. Moderate bilateral subcutaneous soft tissue edema in the upper abdomen, volume overload versus changes of generalized anasarca. 5. Small hiatal hernia and prior gastric sleeve with no gross anastomotic complication. 6. Trace basilar pleural effusions. 7. Soft tissue air in the left anterior abdominal wall and small volume intraperitoneal free air along the anterior liver margin consistent with postoperative air from the patient's recent surgery.
--- NOTE | 2022-11-10 17:38 | PC.NURSE ---
1725- Pt notably winded and diaphoretic after walking in hallway. Upon reassessing pt, o2 sat is noted to be 88-90%. Pt has also c/o right upper chest pain. Lungs are clear but diminished in bases. Bowel sounds are normoactive. Nasal cannula placed on patient at 2L. Dr Gordillo notified of findings. This RN requested CTA and CMP. Also reported pt's decreased urine output. Orders for CTA per PE protocol, CMP, troponins x3, EKG, and chest xray. POC discussed with patient and who are agreeable.
--- NOTE | 2022-11-10 17:41 | ECG_ITS ---
APPROVED REPORT Exam: Resting ECG HR:103 bpm ECG Measurements Heart Rate 103 AXES ID 129 P 58 QRSd 85 QRS 28 QT 332 T 0 QTc 391 Conclusion SINUS TACHYCARDIA NONSPECIFIC T-WAVE ABNORMALITY ABNORMAL RHYTHM ECG UNCONFIRMED REPORT Electronically signed by : Ajit Engle MD 11/11/2022 12:51:36
--- NOTE | 2022-11-10 17:43 | PC.NURSE ---
Late entry: 1340: incisions cleaned and umbilical incision covered with band aid at this time. Discussed incisional care with patient who v/u.
--- NOTE | 2022-11-10 17:44 | PC.NURSE ---
EKG obtained by respiratory and taken to ER physician
--- NOTE | 2022-11-10 18:16 | PC.NURSE ---
PT OFF FLOOR TO CT
[2022-11-10 18:36] LABS: Alanine Aminotransferase 28 U/L (12-78); Albumin Level 3.7 g/dl (3.5-5.0); Albumin/Globulin Ratio 1.1 (1.1-1.8); Alkaline Phosphatase 134 U/L (38-126); Anion Gap 8.9 mEq/L (5-15); Aspartate Amino Transferase 24 U/L (14-36); Bilirubin,Total 0.5 mg/dl (0.2-1.3); Blood Urea Nitrogen 16 mg/dl (7-17); Calcium 8.8 mg/dl (8.4-10.2); Carbon Dioxide 27 mmol/L (22.0-30.0); Chloride 102 mmol/L (98-107); Creatinine Clearance Estimated 88 mL/min (50-200); Estimated Glomerular Filt Rate 80 ml/min (>60); GFR (African American) 97 ML/MIN (>60); Globulin 3.5 g/dL (1.3-3.2); Glucose 159 mg/dl (74-100); Potassium 3.9 mmoL/L (3.5-5.1); Sodium 134 mmol/L (136-145); Total Protein,Serum 7.2 g/dl (6.3-8.2)
--- NOTE | 2022-11-10 18:39 | PC.NURSE ---
PT BACK TO ROOM. ASSISTED BACK TO BED, NC AT 2L REMAINS IN PLACE. CALL LIGHT WITHIN REACH.
--- NOTE | 2022-11-10 18:54 | CT_ITS ---
PROCEDURE INFORMATION: Exam: CT Abdomen And Pelvis With Contrast Exam date and time: 11/10/2022 8:02 PM Age: 37 years old Clinical indication: Abdominal pain; Generalized; Prior surgery; Surgery date: Post-operative (0-2 days); Additional info: Abnormal vital signs following surgery TECHNIQUE: Imaging protocol: Computed tomography of the abdomen and pelvis with contrast. Radiation optimization: All CT scans at this facility use at least one of these dose optimization techniques: automated exposure control; mA and/or kV adjustment per patient size (includes targeted exams where dose is matched to clinical indication); or iterative reconstruction. Contrast material: ISOVUE; Contrast volume: 50 ml; Contrast route: IV; COMPARISON: CT ABDOMEN PELVIS W CON 11/09/2022 4:24 AM FINDINGS: Diaphragm: Small hiatal hernia. Liver: Hepatomegaly unchanged measuring 25 cm craniocaudal. Mild generalized fatty infiltration of the liver. Normal contour. No mass lesions. No intrahepatic biliary ductal dilatation. Gallbladder and bile ducts: Slight stranding around the gallbladder with no gallbladder wall thickening and partially contracted status, probably related to mild generalized soft tissue edema as seen elsewhere throughout the scan. Correlate clinically for any suspicion of cholecystitis, consider sonographic assessment if clinically indicated. Nondilated bile ducts. Pancreas: Normal. No inflammatory changes or ductal dilation. Spleen: Normal. No splenomegaly. Adrenal glands: Normal. No adrenal mass. Kidneys and ureters: No acute abnormalities. No hydronephrosis or hydroureter. No urinary tract stones are identified. Excreted contrast in the collecting systems from recent prior chest CT. Stomach and bowel: Prior gastric sleeve without gross anastomotic complication. Mildly excessive fluid content in the mid to distal small bowel and proximal colon again noted suggesting mild changes of diarrheal state and possibly mild generalized enterocolitis again noted with no evidence of bowel obstruction. Mild mesenteric stranding in the lower abdomen may relate to generalized soft tissue edema or postoperative changes from recent surgery, versus mild inflammatory stranding from mild enterocolitis. Appendix: The appendix is not definitively identified, however what is felt to represent the appendix tracks into the right adnexal region where it becomes difficult to characterize due to surrounding adnexal structures and nonopacified bowel, measuring about 12 mm diameter on series 3, image 119. Correlate with operative findings in the last 24 hours, appendicitis is not excluded with the current imaging appearance. CT with oral contrast may be helpful to better define the appendix if clinically indicated. Intraperitoneal space: There is moderate soft tissue air in the anterior abdominal wall extraperitoneal tissues and periumbilical subcutaneous fat consistent with recent prior surgery. There is small volume intraperitoneal free air in the right upper quadrant of the abdomen with additional foci in the bilateral pelvis and anterior mid abdomen, also consistent with recent postoperative status, although nonspecific. Small volume peritoneal fluid in the pelvis measures 11 Hounsfield units favoring simple fluid. Vasculature: No acute process. No abdominal aortic aneurysm. Dilated left gonadal vein measuring 12 mm diameter with mildly prominent left adnexal veins suspicious for mild changes of chronic pelvic congestion syndrome, unchanged. No thrombosis. Lymph nodes: No adenopathy. Urinary bladder: Unremarkable as visualized. Reproductive: Uterus is unremarkable. Right adn
[2022-11-10 19:05] LABS: Troponin I < 0.01 ng/ml (0.00-0.034)
--- NOTE | 2022-11-10 19:06 | PC.NURSE ---
Dr Gordillo updated on patient and pending labs. Orders to order lactic acid, cbc, internal med consult, and repeat ct of abdomen. R/V.
--- NOTE | 2022-11-10 19:14 | PC.NURSE ---
DR MCGOVERN NOTIFIED OF CONSULT AND [facility] V/U
--- NOTE | 2022-11-10 19:27 | PC.NURSE ---
DR SERVIN UPDATED ON PT STATUS, REQUESTS HOSPITALIST CALL HER AFTER SHE SEES PT. V/U. REPORT GIVEN TO MILAGRO MILLER
--- NOTE | 2022-11-10 19:45 | PC.NURSE ---
LR BOLUSING FOR SEPSIS,RADIOLOGY CALLED TO SEE IF COULD LOCK HER FOR HER CT OF ABD.,THEY WILL BE UP SHORTLY
--- NOTE | 2022-11-10 19:57 | PC.NURSE ---
PT OFF FLOOR TO CT
--- NOTE | 2022-11-10 20:11 | PC.NURSE ---
PT RETURNED TO ROOM
--- NOTE | 2022-11-10 20:17 | PC.NURSE ---
Hospitalist at bedside at this time.
--- NOTE | 2022-11-10 20:20 | PC.NURSE ---
POLYSOMNOGRAPHY TECHNOLOGIST SAID TO HOLD OFF ON THE FLUID BOLUSES FOR NOW SINCE IT IS SAYING SHE HAS FLUID OVERLOAD
--- NOTE | 2022-11-10 20:45 | PC.NURSE ---
Low BAINS TALKING WITH DR.ROBIN DEE ABOUT A CRITICAL
--- NOTE | 2022-11-10 20:50 | PC.NURSE ---
HEEL BOOM OPERATOR IN TO TALK WITH PT ABOUT TRANSFERING HER STEP DOWN
[2022-11-10 21:00] LABS: Basophils # 0.1 K/mm3 (0-0.2); Basophils % 0.6 % (0.1-2.0); Eosinophils # 0.2 K/mm3 (0.0-0.4); Hematocrit 30.6 % (37.0-47.0); Hemoglobin 9.7 g/dL (12.2-16.2); Lymphocytes # 1.6 K/mm3 (0.7-4.5); Lymphocytes % 9.5 % (10-50); Mean Corpuscular HGB Conc 31.7 g/dL (31.8-35.4); Mean Corpuscular Hemoglobin 26.3 pg (27.0-31.2); Mean Corpuscular Volume 82.9 fl (81-99); Mean Platelet Volume 9.3 fl (7.4-10.4); Neutrophils # 14.3 K/mm3 (1.8-7.8); Platelet Count 291 K/mm3 (142-424); Red Blood Count 3.69 M/mm3 (4.20-5.40); Red Cell Distribution Width 13.4 % (11.5-17.5); White Blood Count 17.2 K/mm3 (4.8-10.8)
[2022-11-10 21:01] LABS: MANUAL DIFFERENTIAL MANUAL DIFFERENTIAL (MANUAL DIFF)
[2022-11-10 21:17] LABS: Lactic Acid 1.7 mmol/L (0.7-2.1)
--- NOTE | 2022-11-10 21:31 | EXP.MED.CON ---
Documented by User: Allen Marx DNP 11/10/22 23:42 History of Present Illness *Admission Date: 11/09/22 *History of present illness: Ms. Joanie Samuels is a 37-year-old female with a past medical history that is positive for HTN and Iron Deficieny Anemia. She presented to [facility] on 11/09/2022 with complaints of abdominal pain. During work-up for her abdominal pain in the ER on admission on 11/[address] of the abdomen and pelvis that showed a bilateral adnexal mass and ultrasound was recommended as further evaluation. On Ultrasound, there was noted to be a left ovarian cyst measuring 4.4 cm and a moderate amount of complex free fluid in the cul-de-sac and a 17 mm echogenic focus in the cul-de-sac. She was then taken to the OR and underwent a diagnostic laparoscopy and operative findings showed a large Right Tubo-Ovarian Abscess, edema of the right fallopopian tube, extensive abdominal and pelvic adhesions, small left ovarian cyst and a copious amount of purulent drainage. She was placed on Amipcillin, Clindamycin and Gentamycin. During the evening of 11/10 the patient had episodes of Shortness of air, Abdominal Pain, Tachycardia and Hypotension. She also had a WBC that had slightly increased from prior day to 17.9. She was initiated on Fluids due to concern for Sepsis. She had CTA of the chest, CT of the abdomen, blood cultures drawn. CTA of the chest showed a mildly enlarged heart with moderatly dilated right atrium and ventricles with contrast reflux into the hepatic veins suggestive of CHF. On the CT of the abdomen and pelvis the Appendix could not be appropriately visualized, but what appeared to be the appendix appeared mildly thickened, there was a small volume of intrapelvic free fluid and mild to moderate soft tissue stranding edema that appeared to be consistent with volume overload, anasarca. Hospital Medicine was consulted due to concern for Sepsis and Volume Overload. Spoke with LEAF FAT SCRAPER Attending due to findings on CT. Agreed for Surgical consult for am. Will broaden antibiotics, BNP ordered and was elevated. Echo ordered for am. [facility] Disclaimer: The information contained in this section may have been updated after the patient was seen, as this information can be updated by other users. Medical History (Updated 11/11/22 @ 11:01 by Alvina Gordillo DO) Hypertension Iron deficiency anemia Surgical History H/O gastric sleeve Social History Smoking Status: Never smoker alcohol intake: never substance use type: denies use current occupational status: employed Travel in the last 8 weeks: None Review of Systems Review of Systems Review of systems:: pertinent systems reviewed and negative unless documented below Constitutional Constitutional: Reports system reviewed and no additional complaints, except as documented Eyes Eyes: Reports system reviewed and no additional complaints, except as documented ENT Ears, Nose, Mouth, and Throat: Reports system reviewed and no additional complaints, except as documented *Cardiovascular Cardiovascular: Reports system reviewed and no additional complaints, except as documented and Reports dyspnea *Respiratory Respiratory: Reports dyspnea *Gastrointestinal Gastrointestinal: Reports abdominal pain *Genitourinary Genitourinary: Reports system reviewed and no additional complaints, except as documented *Musculoskeletal Musculoskeletal: Reports system reviewed and no additional complaints, except as documented Integumentary/Breasts Skin/Breast: Reports system reviewed and no additional complaints, except as documented *Neurologic Neurologic: Reports system reviewed and no additional complaints, except as documented Psychiatric Psychiatric: Reports system reviewed and no additional complaints, except as documented Endocrine Endocri
[2022-11-10 21:39] LABS: Lymphocytes % 8 % (10-50); Monocytes % 2 % (2-9); Neutrophils % 81 % (42-76); Platelet Estimate Normal; RBC Morphology Normal; Total Cells Counted 100
[2022-11-10 21:45] LABS: Troponin I < 0.01 ng/ml (0.00-0.034)
[2022-11-10 21:59] LABS: NT Pro Brain Natriuretic Pep. 1940 pg/mL (0-125)
--- NOTE | 2022-11-10 22:29 | PC.NURSE ---
REPORT GIVEN TO NISHANTRN
--- NOTE | 2022-11-10 22:49 | PC.NURSE ---
pt arrived to floor via wheelchair @ 2230.
[2022-11-11] VITALS (7 sets, daily range): BP systolic 98–129; BP diastolic 53–87; PULSE 67–98; RESP 18–22; TEMP 36.7–37.4; O2SAT 90–97; BMI 48.9
[2022-11-11 00:18] LABS: Troponin I < 0.01 ng/ml (0.00-0.034)
--- NOTE | 2022-11-11 02:41 | PC.NURSE ---
2 doses of 1gm vancomycin in 250 ml given to equal the original 2 gm dose. sami from [facility] was contacted for the first dose and neo from [facility] was contacted for the second dose.
--- NOTE | 2022-11-11 06:59 | PC.NURSE ---
pt admitted to [facility] from ob this shift. complaints of abdominal pain and right shoulder pain, medicated prn per jan with favorable results. pt has ambulated in the [facility] X1 this shift. ambulates to and from bathroom with assistance. A&Ox4. umbilical wound dressing is cdi. call light is in reach. no other complaints at this time.
--- NOTE | 2022-11-11 07:47 | PC.NURSE ---
Notified Dr. Ledbetter about consult on patient.
[2022-11-11 09:46] LABS: Basophils % 0.3 % (0.1-2.0); Eosinophils # 0.2 K/mm3 (0.0-0.4); Eosinophils % 1.4 % (0.1-12.0); Hematocrit 29.4 % (37.0-47.0); Hemoglobin 9.8 g/dL (12.2-16.2); Lymphocytes % 7.4 % (10-50); Mean Corpuscular HGB Conc 33.5 g/dL (31.8-35.4); Mean Corpuscular Hemoglobin 26.6 pg (27.0-31.2); Mean Corpuscular Volume 79.6 fl (81-99); Mean Platelet Volume 8.2 fl (7.4-10.4); Monocytes # 0.4 K/mm3 (0.1-1.0); Monocytes % 2.7 % (1.7-9.3); Neutrophils # 12.3 K/mm3 (1.8-7.8); Neutrophils % 88.2 % (37.0-80.0); Platelet Count 362 K/mm3 (142-424); Red Blood Count 3.69 M/mm3 (4.20-5.40); Red Cell Distribution Width 13.4 % (11.5-17.5)
[2022-11-11 09:53] LABS: MANUAL DIFFERENTIAL MANUAL DIFFERENTIAL (MANUAL DIFF)
[2022-11-11 10:05] LABS: Chloride 104 mmol/L (98-107)
[2022-11-11 10:06] LABS: Potassium 4.1 mmoL/L (3.5-5.1); Sodium 137 mmol/L (136-145)
[2022-11-11 10:08] LABS: Alanine Aminotransferase 16 U/L (12-78); Alkaline Phosphatase 100 U/L (38-126); Anion Gap 10.1 mEq/L (5-15); Aspartate Amino Transferase 17 U/L (14-36); Bilirubin,Total 0.3 mg/dl (0.2-1.3); Blood Urea Nitrogen 10 mg/dl (7-17); Carbon Dioxide 27 mmol/L (22.0-30.0); Creatinine Clearance Estimated 118 mL/min (50-200); Estimated Glomerular Filt Rate 111 ml/min (>60); GFR (African American) 135 ML/MIN (>60)
[2022-11-11 10:09] LABS: Albumin Level 2.9 g/dl (3.5-5.0); Albumin/Globulin Ratio 1.1 (1.1-1.8); Calcium 8.2 mg/dl (8.4-10.2); Globulin 2.6 g/dL (1.3-3.2); Glucose 112 mg/dl (74-100); NT Pro Brain Natriuretic Pep. 2720 pg/mL (0-125); Total Protein,Serum 5.5 g/dl (6.3-8.2)
[2022-11-11 10:39] LABS: Lymphocytes % 10 % (10-50); Monocytes % 5 % (2-9); Neutrophils % 85 % (42-76); Platelet Estimate Normal; RBC Morphology Normal; Total Cells Counted 100
--- NOTE | 2022-11-11 10:49 | EXP.ACUTE.PN ---
Subjective *Date: 11/11/22 *Time: 10:55 Interval history: POD # 2 s/p diagnostic laparoscopy, drainage of right TOA, irrigation of pelvis and abdomen She is resting this morning. She admits shortness of breath and chest discomfort is better.. still slightly present with deep breath. Denies fever/chills. Denies nausea and vomiting. Admits abdominal pain is more sore than yesterday. Denies diarrhea and constipation. No swelling or calf pain. Yesterday evening she was complaining of chest discomfort and shortness of breath. She was noted to be tachycardia, HR 110, with BP 98/58. O1 sat was noted to be 88-90% on RA. She was started on 2 L of O2 via nasal canula. Labs including Troponin and blood cultures, EKG, Chest Xray, CTA and Abdomen/Pelvis CT was ordered. Hospitalist was consulted. Medical Exam Vital signs and Labs for Last 24 Hours: Vital Signs Temp Pulse Pulse Resp BP BP Pulse Ox 11/11/22 07:35 98.4 F 98 H 18 124/64 90 L 11/11/22 04:00 98.1 F 89 22 126/63 94 L 11/10/22 23:44 97.9 F 90 24 123/60 95 11/10/22 22:00 98.7 F 82 20 103/54 L 96 11/10/22 20:15 96 11/10/22 19:45 98.3 F 91 H 18 146/85 H 96 11/10/22 17:47 97 11/10/22 17:22 98.9 F 110 H 20 98/58 L 90 L 11/10/22 16:30 98.6 F 88 18 97/56 L 94 L 11/10/22 17:10 18 11/10/22 12:00 98.2 F 72 18 110/74 99 11/10/22 11:09 98.7 F 94 H 112/59 L Intake and Output 11/10/22 11/11/22 11/11/22 23:59 07:59 15:59 Output Total 100 / 450 600 / 600 0 / 600 Balance -100 / 3220 -600 / -600 0 / -600 Output: Output, Urine Amount 100 / 450 600 / 600 0 / 600 Other: Number of Unmeasured Voids 0 Laboratory Results - last 24 hr 11/10/22 17:55: Sodium 134 L, Potassium 3.9, Chloride 102, Carbon Dioxide 27, Anion Gap 8.9, BUN 16 D, Creatinine 0.80, Estimated Creat Clear 88, Estimated GFR 80, Est GFR ( Amer) 97, Glucose 159 H, Calcium 8.8, Total Bilirubin 0.5, AST 24 D, ALT 28 D, Alkaline Phosphatase 134 H, Troponin I < 0.01, Total Protein 7.2, Albumin 3.7, Globulin 3.5 H, Albumin/Globulin Ratio 1.1 11/10/22 20:45: Troponin I < 0.01 11/10/22 20:45: WBC 17.2 H, RBC 3.69 L, Hgb 9.7 L, Hct 30.6 L, MCV 82.9, MCH 26.3 L, MCHC 31.7 L, RDW 13.4, Plt Count 291, MPV 9.3, Neut % (Auto) 83.0 H, Lymph % (Auto) 9.5 L, [place] % (Auto) 6.0, Eos % (Auto) 1.0, Baso % (Auto) 0.6, Neut # (Auto) 14.3 H, Lymph # (Auto) 1.6, [place] # (Auto) 1.0, Eos # (Auto) 0.2, Baso # (Auto) 0.1, Total Counted 100, Neutrophils % (Manual) 81 H, Band Neutrophils % 9.0 H, Lymphocytes % (Manual) 8 L, Monocytes % (Manual) 2, Platelet Estimate Normal, RBC Morphology Normal 11/10/22 20:45: Lactate 1.7 11/10/22 20:45: NT-Pro-B Natriuret Pep 1940 H 11/10/22 23:37: Troponin I < 0.01 11/11/22 09:25: WBC 14.0 H, RBC 3.69 L, Hgb 9.8 L, Hct 29.4 L, MCV 79.6 L, MCH 26.6 L, MCHC 33.5, RDW 13.4, Plt Count 362, MPV 8.2, Neut % (Auto) 88.2 H, Lymph % (Auto) 7.4 L, [place] % (Auto) 2.7, Eos % (Auto) 1.4, Baso % (Auto) 0.3, Neut # (Auto) 12.3 H, Lymph # (Auto) 1.0, [place] # (Auto) 0.4, Eos # (Auto) 0.2, Baso # (Auto) 0.0, Total Counted 100, Neutrophils % (Manual) 85 H, Lymphocytes % (Manual) 10, Monocytes % (Manual) 5, Platelet Estimate Normal, RBC Morphology Normal 11/11/22 09:25: Sodium 137, Potassium 4.1, Chloride 104, Carbon Dioxide 27, Anion Gap 10.1, BUN 10 D, Creatinine 0.60 D, Estimated Creat Clear 118, Estimated GFR 111, Est GFR ( Amer) 135 D, Glucose 112 H D, Calcium 8.2 L, Total Bilirubin 0.3, AST 17 D, ALT 16 D, Alkaline Phosphatase 100, Total Protein 5.5 L, Albumin 2.9 L D, Globulin 2.6, Albumin/Globulin Ratio 1.1 11/11/22 09:25: NT-Pro-B Natriuret Pep 2720 H I & O for Labs for Last 24 Hours: Intake & Output 11/08/22 11/09/22 11/10/22 11/11/22 23:59 23:59 23:59 23:59 Intake Total 1800 / 1800 3670 / 3670 Output Total 100 / 100 450 / 450 600 / 600 Balance 1700 / 1700 3220 / 3220 -600 / -600 Weight 275 lb 0.003 oz 310 lb 1 oz
--- NOTE | 2022-11-11 12:46 | PC.NURSE ---
contacted MD regarding pt diet.
--- NOTE | 2022-11-11 13:29 | EXP.ACUTE.PN ---
Subjective *Date: 11/11/22 *Time: 14:31 Interval history: Patient states she is feeling somewhat better this morning. Still having significant abdominal pain however decreased chest discomfort. Breathing more comfortably. Able to wean to room air this morning. Denies nausea. Would like to eat. No fever overnight. No diarrhea. Blood pressure stable this morning Medical Exam Vital signs and Labs for Last 24 Hours: Vital Signs Temp Pulse Resp BP Pulse Ox 11/11/22 11:23 98.5 F 87 18 119/87 90 L 11/11/22 07:35 98.4 F 98 H 18 124/64 90 L 11/11/22 04:00 98.1 F 89 22 126/63 94 L 11/10/22 23:44 97.9 F 90 24 123/60 95 11/10/22 22:00 98.7 F 82 20 103/54 L 96 11/10/22 20:15 96 11/10/22 19:45 98.3 F 91 H 18 146/85 H 96 11/10/22 17:47 97 11/10/22 17:22 98.9 F 110 H 20 98/58 L 90 L 11/10/22 16:30 98.6 F 88 18 97/56 L 94 L 11/10/22 17:10 18 Intake and Output 11/10/22 11/11/22 11/11/22 23:59 07:59 15:59 Output Total 100 / 450 600 / 1700 1100 / 1700 Balance -100 / 3220 -600 / -1700 -1100 / -1700 Output: Output, Urine Amount 100 / 450 600 / 900 300 / 900 Output, Urine Amount (Catheter) 800 / 800 Jarvis 800 / 800 Other: Number of Unmeasured Voids 0 Weight 138.3 kg Patient Weight 11/11/22 23:59 Weight 138.3 kg Laboratory Results - last 24 hr 11/10/22 17:55: Sodium 134 L, Potassium 3.9, Chloride 102, Carbon Dioxide 27, Anion Gap 8.9, BUN 16 D, Creatinine 0.80, Estimated Creat Clear 88, Estimated GFR 80, Est GFR ( Amer) 97, Glucose 159 H, Calcium 8.8, Total Bilirubin 0.5, AST 24 D, ALT 28 D, Alkaline Phosphatase 134 H, Troponin I < 0.01, Total Protein 7.2, Albumin 3.7, Globulin 3.5 H, Albumin/Globulin Ratio 1.1 11/10/22 20:45: Troponin I < 0.01 11/10/22 20:45: WBC 17.2 H, RBC 3.69 L, Hgb 9.7 L, Hct 30.6 L, MCV 82.9, MCH 26.3 L, MCHC 31.7 L, RDW 13.4, Plt Count 291, MPV 9.3, Neut % (Auto) 83.0 H, Lymph % (Auto) 9.5 L, [place] % (Auto) 6.0, Eos % (Auto) 1.0, Baso % (Auto) 0.6, Neut # (Auto) 14.3 H, Lymph # (Auto) 1.6, [place] # (Auto) 1.0, Eos # (Auto) 0.2, Baso # (Auto) 0.1, Total Counted 100, Neutrophils % (Manual) 81 H, Band Neutrophils % 9.0 H, Lymphocytes % (Manual) 8 L, Monocytes % (Manual) 2, Platelet Estimate Normal, RBC Morphology Normal 11/10/22 20:45: Lactate 1.7 11/10/22 20:45: NT-Pro-B Natriuret Pep 1940 H 11/10/22 23:37: Troponin I < 0.01 11/11/22 09:25: WBC 14.0 H, RBC 3.69 L, Hgb 9.8 L, Hct 29.4 L, MCV 79.6 L, MCH 26.6 L, MCHC 33.5, RDW 13.4, Plt Count 362, MPV 8.2, Neut % (Auto) 88.2 H, Lymph % (Auto) 7.4 L, [place] % (Auto) 2.7, Eos % (Auto) 1.4, Baso % (Auto) 0.3, Neut # (Auto) 12.3 H, Lymph # (Auto) 1.0, [place] # (Auto) 0.4, Eos # (Auto) 0.2, Baso # (Auto) 0.0, Total Counted 100, Neutrophils % (Manual) 85 H, Lymphocytes % (Manual) 10, Monocytes % (Manual) 5, Platelet Estimate Normal, RBC Morphology Normal 11/11/22 09:25: Sodium 137, Potassium 4.1, Chloride 104, Carbon Dioxide 27, Anion Gap 10.1, BUN 10 D, Creatinine 0.60 D, Estimated Creat Clear 118, Estimated GFR 111, Est GFR ( Amer) 135 D, Glucose 112 H D, Calcium 8.2 L, Total Bilirubin 0.3, AST 17 D, ALT 16 D, Alkaline Phosphatase 100, Total Protein 5.5 L, Albumin 2.9 L D, Globulin 2.6, Albumin/Globulin Ratio 1.1 11/11/22 09:25: NT-Pro-B Natriuret Pep 2720 H I & O for Labs for Last 24 Hours: Intake & Output 11/08/22 11/09/22 11/10/22 11/11/22 23:59 23:59 23:59 23:59 Intake Total 1800 / 1800 3670 / 3670 Output Total 100 / 100 450 / 450 1700 / 1700 Balance 1700 / 1700 3220 / 3220 -1700 / -1700 Weight 124.738 kg 140.642 kg 138.3 kg Microbiology Reports for the Last 24 Hours: Microbiology 11/09/22 09:24 Urine,Clean Catch Urine Culture - Final Multiple organisms, suggests contamination. 11/09/22 11:45 Peritoneal Fluid - Abscess Gram Stain - Final 11/09/22 11:45 Peritoneal Fluid - Abscess Body Fluid Culture - Preliminary
--- NOTE | 2022-11-11 13:46 | EXP.PHA.CONS ---
Pharmacy Consult Date: 11/11/22 Time: 13:46 Referring provider: DR. MCGOVERN Reason for Consult:: VANCOMYCIN DOSING Allergies Allergy/AdvReac Type Severity Reaction Status Date / Time No Known Allergies Allergy Verified 11/09/22 03:46 Home Medications Medication Instructions Recorded Confirmed Type ferrous gluconate 240 mg (27 mg 240 mg PO BID Supplement 11/09/22 11/09/22 History iron) tablet (Ferate) hydrochlorothiazide 12.5 mg tablet 12.5 mg PO BID Hypertension 11/09/22 11/09/22 History New Prescriptions to Start Prescriptions: Height: 1.68 m Weight: 138.3 kg Laboratory Results:: Laboratory Results - last 24 hr 11/10/22 17:55: Sodium 134 L, Potassium 3.9, Chloride 102, Carbon Dioxide 27, Anion Gap 8.9, BUN 16 D, Creatinine 0.80, Estimated Creat Clear 88, Estimated GFR 80, Est GFR ( Amer) 97, Glucose 159 H, Calcium 8.8, Total Bilirubin 0.5, AST 24 D, ALT 28 D, Alkaline Phosphatase 134 H, Troponin I < 0.01, Total Protein 7.2, Albumin 3.7, Globulin 3.5 H, Albumin/Globulin Ratio 1.1 11/10/22 20:45: Troponin I < 0.01 11/10/22 20:45: WBC 17.2 H, RBC 3.69 L, Hgb 9.7 L, Hct 30.6 L, MCV 82.9, MCH 26.3 L, MCHC 31.7 L, RDW 13.4, Plt Count 291, MPV 9.3, Neut % (Auto) 83.0 H, Lymph % (Auto) 9.5 L, [place] % (Auto) 6.0, Eos % (Auto) 1.0, Baso % (Auto) 0.6, Neut # (Auto) 14.3 H, Lymph # (Auto) 1.6, [place] # (Auto) 1.0, Eos # (Auto) 0.2, Baso # (Auto) 0.1, Total Counted 100, Neutrophils % (Manual) 81 H, Band Neutrophils % 9.0 H, Lymphocytes % (Manual) 8 L, Monocytes % (Manual) 2, Platelet Estimate Normal, RBC Morphology Normal 11/10/22 20:45: Lactate 1.7 11/10/22 20:45: NT-Pro-B Natriuret Pep 1940 H 11/10/22 23:37: Troponin I < 0.01 11/11/22 09:25: WBC 14.0 H, RBC 3.69 L, Hgb 9.8 L, Hct 29.4 L, MCV 79.6 L, MCH 26.6 L, MCHC 33.5, RDW 13.4, Plt Count 362, MPV 8.2, Neut % (Auto) 88.2 H, Lymph % (Auto) 7.4 L, [place] % (Auto) 2.7, Eos % (Auto) 1.4, Baso % (Auto) 0.3, Neut # (Auto) 12.3 H, Lymph # (Auto) 1.0, [place] # (Auto) 0.4, Eos # (Auto) 0.2, Baso # (Auto) 0.0, Total Counted 100, Neutrophils % (Manual) 85 H, Lymphocytes % (Manual) 10, Monocytes % (Manual) 5, Platelet Estimate Normal, RBC Morphology Normal 11/11/22 09:25: Sodium 137, Potassium 4.1, Chloride 104, Carbon Dioxide 27, Anion Gap 10.1, BUN 10 D, Creatinine 0.60 D, Estimated Creat Clear 118, Estimated GFR 111, Est GFR ( Amer) 135 D, Glucose 112 H D, Calcium 8.2 L, Total Bilirubin 0.3, AST 17 D, ALT 16 D, Alkaline Phosphatase 100, Total Protein 5.5 L, Albumin 2.9 L D, Globulin 2.6, Albumin/Globulin Ratio 1.1 11/11/22 09:25: NT-Pro-B Natriuret Pep 2720 H Medical History: Medical History (Updated 11/11/22 @ 11:01 by Alvina Gordillo DO) Hypertension Iron deficiency anemia Assessment and Plan Assessment and plan all Dx Assessment and Plan for all problems:: PATIENT RECEIVED VANCOMYCIN 1 GM IV X 2 DOSES EARLY THIS MORNING. BASED ON PATIENT FACTORS, RECOMMEND VANCOMYCIN 2 GM IV Q8H. WILL OBTAIN A VANCOMYCIN TROUGH LEVEL TOMORROW PRIOR TO 4TH DOSE. PHARMACY WILL CONTINUE TO MONITOR WHILE PATIENT IS ON VANCOMYCIN.
--- NOTE | 2022-11-11 16:01 | EXP.SURG.CON ---
History of Present Illness *Admission Date: 11/09/22 *Reason for visit:: Reason for consultation: Abnormal CT scan (concerns for appendicitis) *History of present illness: This is a 37-year-old female seen in consultation from TUNNEL INSPECTOR and the hospitalist service for evaluation of radiographic anomaly (inability to rule out appendicitis). She is postoperative day 2 status post laparoscopy and drainage of a large right tubo-ovarian abscess. Yesterday evening a CT scan of her abdomen/pelvis was completed and findings included the following: The appendix is not definitively identified, however what is felt to represent the appendix appears mildly thickened as it enters the right adnexal distribution, up to 12 mm diameter. Can not exclude appendicitis on this exam, correlate clinically with intraoperative findings from recent abdominal surgery. The surgical service was contacted secondary to the above findings. The CT scan was evaluated by Dr. Ledbetter and he spoke with the primary service earlier today. Currently, the patient feels sore but better than then when (she) came in Forwarded from hospitalist consultation: Ms. Joanie Samuels is a 37-year-old female with a past medical history that is positive for HTN and Iron Deficieny Anemia. She presented to [facility] on 11/09/2022 with complaints of abdominal pain. During work-up for her abdominal pain in the ER on admission on 11/[address] of the abdomen and pelvis that showed a bilateral adnexal mass and ultrasound was recommended as further evaluation. On Ultrasound, there was noted to be a left ovarian cyst measuring 4.4 cm and a moderate amount of complex free fluid in the cul-de-sac and a 17 mm echogenic focus in the cul-de-sac. She was then taken to the OR and underwent a diagnostic laparoscopy and operative findings showed a large Right Tubo-Ovarian Abscess, edema of the right fallopopian tube, extensive abdominal and pelvic adhesions, small left ovarian cyst and a copious amount of purulent drainage. She was placed on Amipcillin, Clindamycin and Gentamycin. During the evening of 11/10 the patient had episodes of Shortness of air, Abdominal Pain, Tachycardia and Hypotension. She also had a WBC that had slightly increased from prior day to 17.9. She was initiated on Fluids due to concern for Sepsis. She had CTA of the chest, CT of the abdomen, blood cultures drawn. CTA of the chest showed a mildly enlarged heart with moderatly dilated right atrium and ventricles with contrast reflux into the hepatic veins suggestive of CHF. On the CT of the abdomen and pelvis the Appendix could not be appropriately visualized, but what appeared to be the appendix appeared mildly thickened, there was a small volume of intrapelvic free fluid and mild to moderate soft tissue stranding edema that appeared to be consistent with volume overload, anasarca. Hospital Medicine was consulted due to concern for Sepsis and Volume Overload. Spoke with TUNNEL INSPECTOR Attending due to findings on CT. Agreed for Surgical consult for am. Will broaden antibiotics, BNP ordered and was elevated. Echo ordered for am. PFSH PFSH Disclaimer: The information contained in this section may have been updated after the patient was seen, as this information can be updated by other users. Medical History (Updated 11/11/22 @ 14:04 by Gorge Gomez MD) Hypertension Iron deficiency anemia Surgical History H/O gastric sleeve Social History Smoking Status: Never smoker alcohol intake: never substance use type: denies use current occupational status: employed Travel in the last 8 weeks: None Review of Systems *Neurologic Neurologic: Reports system reviewed and no additional complaints, except as documented Meds Home Medi
--- NOTE | 2022-11-11 18:32 | PC.NURSE ---
pt has done well today. She has maintained saturations on RA. has ambulated in the whitaker x3. has been sitting up on the side of the bed for meals. pt reports improved gas pains as well as abd pain. no reorts of nausea. f/c patent @ bedside. pt has tolerated lasix well as well as po diet.
[2022-11-12 04:00] VITALS: BP 114/66; PULSE 81; RESP 16; TEMP 36.4; O2SAT 93; BMI 48.9
--- NOTE | 2022-11-12 05:59 | PC.NURSE ---
Addendum entered by Yael Castellanos RN 11/12/22 06:03: pt abd soft nondistended, tender with active bowel sounds noted, pt without bm at this time post surgery. 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 pt medicated with tylenol and ibuprofen for pain through the night.
--- NOTE | 2022-11-12 07:20 | EXP.SURG.PN ---
Subjective Patient reports: no new complaints Narrative: Feels a little less sore today Exam Data for Last 24 hours Vital signs and Labs for Last 24 Hours: Temp Pulse Resp BP Pulse Ox 97.6 F 81 16 114/66 93 L 11/12/22 04:00 11/12/22 04:00 11/12/22 04:00 11/12/22 04:00 11/12/22 04:00 Laboratory Results - last 24 hr 11/11/22 09:25: WBC 14.0 H, RBC 3.69 L, Hgb 9.8 L, Hct 29.4 L, MCV 79.6 L, MCH 26.6 L, MCHC 33.5, RDW 13.4, Plt Count 362, MPV 8.2, Neut % (Auto) 88.2 H, Lymph % (Auto) 7.4 L, [place] % (Auto) 2.7, Eos % (Auto) 1.4, Baso % (Auto) 0.3, Neut # (Auto) 12.3 H, Lymph # (Auto) 1.0, [place] # (Auto) 0.4, Eos # (Auto) 0.2, Baso # (Auto) 0.0, Total Counted 100, Neutrophils % (Manual) 85 H, Lymphocytes % (Manual) 10, Monocytes % (Manual) 5, Platelet Estimate Normal, RBC Morphology Normal 11/11/22 09:25: Sodium 137, Potassium 4.1, Chloride 104, Carbon Dioxide 27, Anion Gap 10.1, BUN 10 D, Creatinine 0.60 D, Estimated Creat Clear 118, Estimated GFR 111, Est GFR ( Amer) 135 D, Glucose 112 H D, Calcium 8.2 L, Total Bilirubin 0.3, AST 17 D, ALT 16 D, Alkaline Phosphatase 100, Total Protein 5.5 L, Albumin 2.9 L D, Globulin 2.6, Albumin/Globulin Ratio 1.1 11/11/22 09:25: NT-Pro-B Natriuret Pep 2720 H I & O for Last 24 hours: Intake & Output 11/09/22 11/10/22 11/11/22 11/12/22 11:59 11:59 11:59 11:59 Intake Total 5470 / 5470 910 / 910 Output Total 300 / 450 1650 / 1650 2550 / 2550 Balance 5170 / 5020 -1650 / -1650 -1640 / -1640 Weight 275 lb 275 lb 0.003 oz 310 lb 1 oz 304 lb 10.861 oz Microbiology Reports for the Last 24 Hours: Microbiology 11/11/22 06:25 Genital - Drainage Gram Stain - Final 11/09/22 11:45 Peritoneal Fluid - Abscess Gram Stain - Final 11/09/22 11:45 Peritoneal Fluid - Abscess Body Fluid Culture - Preliminary NO GROWTH AFTER 48 HOURS 11/09/22 09:24 Urine,Clean Catch Urine Culture - Final Multiple organisms, suggests contamination. Constitutional Constitutional: no acute distress *Routine Respiratory Exam Respiratory: Absent respiratory distress *Routine Cardiovascular Exam Cardiovascular: Absent tachycardia *Routine Abdominal Exam Abdominal: Present soft and tenderness Comments: Tenderness improved Progress Note: A&P Assessment and plan (1) Abnormal CT of the abdomen: Status: Acute Assessment and plan: The patient continues to slowly improve. The likelihood of appendicitis remains fairly low. Overall, the patient's recent radiographic changes are secondary to her primary diagnosis of large right tubo-ovarian abscess/postoperative changes. Continue management as per Hospitalist Service and [employer]ELOPER Continue serial abdominal exams Continue to increase ambulation
--- NOTE | 2022-11-12 07:32 | EXP.ACUTE.PN ---
Subjective *Date: 11/12/22 *Time: 08:38 Interval history: Afebrile overnight. Tolerating p.o. intake. Patient got up into the shower this morning, states she is feeling some better. Still complaining of some mild abdominal pain. Normotensive. No nausea or vomiting. Would like to have her Jarvis catheter out, no concern for removing today. Stable on room air without any shortness of breath or chest pain Medical Exam Vital signs and Labs for Last 24 Hours: Vital Signs Temp Pulse Resp BP Pulse Ox 11/12/22 04:00 97.6 F 81 16 114/66 93 L 11/11/22 23:53 98.0 F 81 20 98/53 L 92 L 11/11/22 20:00 92 L 11/11/22 19:39 99.3 F 98 H 22 106/65 L 92 L 11/11/22 15:08 98.4 F 67 18 129/74 97 11/11/22 11:23 98.5 F 87 18 119/87 90 L 11/11/22 07:35 98.4 F 98 H 18 124/64 90 L Intake and Output 11/11/22 11/11/22 11/12/22 15:59 23:59 07:59 Intake Total 360 / 360 550 / 550 Output Total 1100 / 3350 1650 / 3350 600 / 600 Balance -1100 / -2990 -1290 / -2990 -50 / -50 Intake: Intake, Oral Amount 360 / 360 Intake, Total IV Amount 550 / 550 Cefepime HCl 2 gm In 0.9 % 100 / 100 Sodium Chloride 100 ml @ 200 mls/hr IV Q8H LEONARDA Rx#:[id number] Metronidaz/Sod Chl 500 mg In 200 / 200 100 ml @ 100 mls/hr IV Q6H LEONARDA Rx#:[id number] Vancomycin HCl 2,000 mg In 0.9 250 / 250 % Sodium Chloride 250 ml @ 125 mls/hr IV Q8H LEONARDA Rx#:[id number] Output: Output, Urine Amount 300 / 1550 650 / 1550 600 / 600 Output, Urine Amount (Catheter) 800 / 1800 1000 / 1800 Jarvis 800 / 1800 1000 / 1800 Other: Number of Unmeasured Voids 0 0 Weight 138.3 kg 138.2 kg Patient Weight 11/12/22 23:59 Weight 138.2 kg Laboratory Results - last 24 hr 11/11/22 09:25: WBC 14.0 H, RBC 3.69 L, Hgb 9.8 L, Hct 29.4 L, MCV 79.6 L, MCH 26.6 L, MCHC 33.5, RDW 13.4, Plt Count 362, MPV 8.2, Neut % (Auto) 88.2 H, Lymph % (Auto) 7.4 L, [place] % (Auto) 2.7, Eos % (Auto) 1.4, Baso % (Auto) 0.3, Neut # (Auto) 12.3 H, Lymph # (Auto) 1.0, [place] # (Auto) 0.4, Eos # (Auto) 0.2, Baso # (Auto) 0.0, Total Counted 100, Neutrophils % (Manual) 85 H, Lymphocytes % (Manual) 10, Monocytes % (Manual) 5, Platelet Estimate Normal, RBC Morphology Normal 11/11/22 09:25: Sodium 137, Potassium 4.1, Chloride 104, Carbon Dioxide 27, Anion Gap 10.1, BUN 10 D, Creatinine 0.60 D, Estimated Creat Clear 118, Estimated GFR 111, Est GFR ( Amer) 135 D, Glucose 112 H D, Calcium 8.2 L, Total Bilirubin 0.3, AST 17 D, ALT 16 D, Alkaline Phosphatase 100, Total Protein 5.5 L, Albumin 2.9 L D, Globulin 2.6, Albumin/Globulin Ratio 1.1 11/11/22 09:25: NT-Pro-B Natriuret Pep 2720 H I & O for Labs for Last 24 Hours: Intake & Output 11/09/22 11/10/22 11/11/22 11/12/22 23:59 23:59 23:59 23:59 Intake Total 1800 / 1800 3670 / 3670 360 / 360 550 / 550 Output Total 100 / 100 450 / 450 3350 / 3350 600 / 600 Balance 1700 / 1700 3220 / 3220 -2990 / -2990 -50 / -50 Weight 124.738 kg 140.642 kg 138.3 kg 138.2 kg Microbiology Reports for the Last 24 Hours: Microbiology 11/11/22 06:25 Genital - Drainage Gram Stain - Final 11/09/22 11:45 Peritoneal Fluid - Abscess Gram Stain - Final 11/09/22 11:45 Peritoneal Fluid - Abscess Body Fluid Culture - Preliminary NO GROWTH AFTER 48 HOURS 11/09/22 09:24 Urine,Clean Catch Urine Culture - Final Multiple organisms, suggests contamination. Constitutional: Present no acute distress, mild distress and morbidly obese Head: Present atraumatic and normocephalic ENT: Present normal exam Neck: Present full ROM Respiratory: Present CTA bilaterally and normal respiratory effort; Absent accessory muscle use, rhonchi, wheezes or crackles Cardiac: Present Reg Rate and Rhythm GI: Present soft, tenderness (+ RUQ and RLQ tenderness to palpation, interval improvement) and normal bowel sounds; Absent distention, guardin
[2022-11-12 07:33] VITALS: BP 107/53; PULSE 85; RESP 16; TEMP 36.7; O2SAT 96
[2022-11-12 08:06] LABS: Basophils # 0.1 K/mm3 (0-0.2); Basophils % 0.5 % (0.1-2.0); Eosinophils # 0.3 K/mm3 (0.0-0.4); Eosinophils % 2.2 % (0.1-12.0); Hematocrit 30.6 % (37.0-47.0); Hemoglobin 10.2 g/dL (12.2-16.2); Lymphocytes # 1.8 K/mm3 (0.7-4.5); Mean Corpuscular HGB Conc 33.2 g/dL (31.8-35.4); Mean Corpuscular Hemoglobin 26.5 pg (27.0-31.2); Mean Corpuscular Volume 79.8 fl (81-99); Mean Platelet Volume 8.4 fl (7.4-10.4); Monocytes # 0.5 K/mm3 (0.1-1.0); Monocytes % 3.9 % (1.7-9.3); Neutrophils # 8.9 K/mm3 (1.8-7.8); Neutrophils % 77.3 % (37.0-80.0); Platelet Count 380 K/mm3 (142-424); Red Blood Count 3.84 M/mm3 (4.20-5.40); Red Cell Distribution Width 13.4 % (11.5-17.5); White Blood Count 11.5 K/mm3 (4.8-10.8)
[2022-11-12 08:12] LABS: Chloride 105 mmol/L (98-107); Potassium 3.6 mmoL/L (3.5-5.1); Sodium 139 mmol/L (136-145)
[2022-11-12 08:14] LABS: Blood Urea Nitrogen 4 mg/dl (7-17); Creatinine Clearance Estimated 141 mL/min (50-200); Estimated Glomerular Filt Rate 137 ml/min (>60); GFR (African American) 166 ML/MIN (>60)
[2022-11-12 08:15] LABS: Alanine Aminotransferase 17 U/L (12-78); Albumin Level 3.2 g/dl (3.5-5.0); Alkaline Phosphatase 104 U/L (38-126); Anion Gap 9.6 mEq/L (5-15); Aspartate Amino Transferase 21 U/L (14-36); Bilirubin,Total 0.3 mg/dl (0.2-1.3); Calcium 8.4 mg/dl (8.4-10.2); Carbon Dioxide 28 mmol/L (22.0-30.0); Globulin 3.1 g/dL (1.3-3.2); Glucose 104 mg/dl (74-100); Total Protein,Serum 6.3 g/dl (6.3-8.2)
[2022-11-12 10:32] VITALS: BMI 48.9
--- NOTE | 2022-11-12 13:44 | PC.NURSE ---
notified of vaginal bleeding
[2022-11-12 14:04] LABS: Anion Gap 10.9 mEq/L (5-15); Blood Urea Nitrogen 7 mg/dl (7-17); Calcium 8.6 mg/dl (8.4-10.2); Carbon Dioxide 28 mmol/L (22.0-30.0); Chloride 104 mmol/L (98-107); Creatinine Clearance Estimated 118 mL/min (50-200); Estimated Glomerular Filt Rate 111 ml/min (>60); GFR (African American) 135 ML/MIN (>60); Glucose 96 mg/dl (74-100); Potassium 3.9 mmoL/L (3.5-5.1); Sodium 139 mmol/L (136-145)
[2022-11-12 14:08] LABS: Vancomycin,Trough 16.5 ug/mL (5.0-10.0)
--- NOTE | 2022-11-12 14:43 | EXP.PHA.CONS ---
Pharmacy Consult Date: 11/12/22 Time: 14:43 Referring provider: DR. MCGOVERN Reason for Consult:: VANCOMYCIN TROUGH LEVEL Allergies Allergy/AdvReac Type Severity Reaction Status Date / Time No Known Allergies Allergy Verified 11/09/22 03:46 Home Medications Medication Instructions Recorded Confirmed Type ferrous gluconate 240 mg (27 mg 240 mg PO BID Supplement 11/09/22 11/09/22 History iron) tablet (Ferate) hydrochlorothiazide 12.5 mg tablet 12.5 mg PO BID Hypertension 11/09/22 11/09/22 History New Prescriptions to Start Prescriptions: Height: 1.68 m Weight: 138 kg Laboratory Results:: Laboratory Results - last 24 hr 11/12/22 07:43: WBC 11.5 H, RBC 3.84 L, Hgb 10.2 L, Hct 30.6 L, MCV 79.8 L, MCH 26.5 L, MCHC 33.2, RDW 13.4, Plt Count 380, MPV 8.4, Neut % (Auto) 77.3, Lymph % (Auto) 16.0, [place] % (Auto) 3.9, Eos % (Auto) 2.2, Baso % (Auto) 0.5, Neut # (Auto) 8.9 H, Lymph # (Auto) 1.8, [place] # (Auto) 0.5, Eos # (Auto) 0.3, Baso # (Auto) 0.1 11/12/22 07:43: Sodium 139, Potassium 3.6, Chloride 105, Carbon Dioxide 28, Anion Gap 9.6, BUN 4 L D, Creatinine 0.50 L, Estimated Creat Clear 141, Estimated GFR 137, Est GFR ( Amer) 166 D, Glucose 104 H, Calcium 8.4, Total Bilirubin 0.3, AST 21, ALT 17, Alkaline Phosphatase 104, Total Protein 6.3, Albumin 3.2 L D, Globulin 3.1, Albumin/Globulin Ratio 1.0 L 11/12/22 13:30: Sodium 139, Potassium 3.9, Chloride 104, Carbon Dioxide 28, Anion Gap 10.9, BUN 7 D, Creatinine 0.60, Estimated Creat Clear 118, Estimated GFR 111, Est GFR ( Amer) 135, Glucose 96, Calcium 8.6 11/12/22 13:30: Vancomycin Trough 16.5 H Medical History: Medical History (Updated 11/12/22 @ 08:40 by Gorge Mcgovern MD) Hypertension Iron deficiency anemia Assessment and Plan Assessment and plan all Dx Assessment and Plan for all problems:: PATIENT IS RECEIVING VANCOMYCIN 2 GM IV Q8H. VANCOMYCIN TROUGH LEVEL IS 16.5 TODAY. RECOMMEND CONTINUING CURRENT DOSE.
--- NOTE | 2022-11-12 14:43 | PC.NURSE ---
spoke with pharmacy about vanc results
[2022-11-12 15:34] VITALS: BP 134/88; PULSE 76; RESP 16; TEMP 37; O2SAT 98
--- NOTE | 2022-11-12 16:38 | EXP.ACUTE.PN ---
Subjective *Date: 11/12/22 *Time: 16:38 Interval history: POD # 3 s/p diagnostic laparoscopy, drainage of right TOA, irrigation of pelvis and abdomen Doing much better today. States she just finished walking the halls. She admits she feels much better. Abdomen is less sore. Shortness of breath has resolved and chest discomfort is only notable with deep breath. Denies fever/chills, chest pain and shortness of breath. Tolerating regular diet. Jarvis catheter was removed and she is voiding without difficulty. She is passing flatus. She admits she noticed some vaginal bleeding today. Periods have been regular, monthly, ~ 30 days. This past year flow has lasted 7 days with 3-4 days heavy flow. She states she would expect her period to start the end of this week. She admits the vaginal bleeding she is experiencing is light. Denies cramping associated with bleeding. Medical Exam Vital signs and Labs for Last 24 Hours: Vital Signs Temp Pulse Resp BP Pulse Ox 11/12/22 15:34 98.6 F 76 16 134/88 98 11/12/22 07:33 98.0 F 85 16 107/53 L 96 11/12/22 04:00 97.6 F 81 16 114/66 93 L 11/11/22 23:53 98.0 F 81 20 98/53 L 92 L 11/11/22 20:00 92 L 11/11/22 19:39 99.3 F 98 H 22 106/65 L 92 L Intake and Output 11/12/22 11/12/22 11/12/22 07:59 15:59 23:59 Intake Total 550 / 1510 960 / 1510 Output Total 600 / 3200 2600 / 3200 Balance -50 / -1690 -1640 / -1690 Intake: Intake, Oral Amount 960 / 960 Intake, Total IV Amount 550 / 550 Cefepime HCl 2 gm In 0.9 % 100 / 100 Sodium Chloride 100 ml @ 200 mls/hr IV Q8H LEONARDA Rx#:[id number] Metronidaz/Sod Chl 500 mg In 200 / 200 100 ml @ 100 mls/hr IV Q6H LEONARDA Rx#:[id number] Vancomycin HCl 2,000 mg In 0.9 250 / 250 % Sodium Chloride 250 ml @ 125 mls/hr IV Q8H LEONARDA Rx#:[id number] Output: Output, Urine Amount 600 / 3200 2600 / 3200 Other: Number of Unmeasured Voids 0 0 Number of Bowel Movements 2 Weight 304 lb 10.861 oz 304 lb 3.806 oz Patient Weight 11/12/22 23:59 Weight 304 lb 3.806 oz Laboratory Results - last 24 hr 11/12/22 07:43: WBC 11.5 H, RBC 3.84 L, Hgb 10.2 L, Hct 30.6 L, MCV 79.8 L, MCH 26.5 L, MCHC 33.2, RDW 13.4, Plt Count 380, MPV 8.4, Neut % (Auto) 77.3, Lymph % (Auto) 16.0, [place] % (Auto) 3.9, Eos % (Auto) 2.2, Baso % (Auto) 0.5, Neut # (Auto) 8.9 H, Lymph # (Auto) 1.8, [place] # (Auto) 0.5, Eos # (Auto) 0.3, Baso # (Auto) 0.1 11/12/22 07:43: Sodium 139, Potassium 3.6, Chloride 105, Carbon Dioxide 28, Anion Gap 9.6, BUN 4 L D, Creatinine 0.50 L, Estimated Creat Clear 141, Estimated GFR 137, Est GFR ( Amer) 166 D, Glucose 104 H, Calcium 8.4, Total Bilirubin 0.3, AST 21, ALT 17, Alkaline Phosphatase 104, Total Protein 6.3, Albumin 3.2 L D, Globulin 3.1, Albumin/Globulin Ratio 1.0 L 11/12/22 13:30: Sodium 139, Potassium 3.9, Chloride 104, Carbon Dioxide 28, Anion Gap 10.9, BUN 7 D, Creatinine 0.60, Estimated Creat Clear 118, Estimated GFR 111, Est GFR ( Amer) 135, Glucose 96, Calcium 8.6 11/12/22 13:30: Vancomycin Trough 16.5 H I & O for Labs for Last 24 Hours: Intake & Output 11/09/22 11/10/22 11/11/22 11/12/22 23:59 23:59 23:59 23:59 Intake Total 1800 / 1800 3670 / 3670 360 / 360 1510 / 1510 Output Total 100 / 100 450 / 450 3350 / 3350 3200 / 3200 Balance 1700 / 1700 3220 / 3220 -2990 / -2990 -1690 / -1690 Weight 275 lb 0.003 oz 310 lb 1 oz 304 lb 14.389 oz 304 lb 3.806 oz Microbiology Reports for the Last 24 Hours: Microbiology 11/09/22 11:45 Peritoneal Fluid - Abscess Gram Stain - Final 11/09/22 11:45 Peritoneal Fluid - Abscess Body Fluid Culture - Preliminary NO GROWTH AFTER 72 HOURS 11/11/22 08:31 Urine,Catheterized Urine Culture - Preliminary NO GROWTH AFTER 24 HOURS 11/11/22 06:25 Genital - Drainage Gram Stain - Final Head: Present atraumatic and normocephalic ENT: Present norm
[2022-11-12 19:45] VITALS: BP 127/62; PULSE 80; RESP 20; TEMP 36.9; O2SAT 91
[2022-11-13 03:59] VITALS: BP 124/71; PULSE 76; RESP 20; TEMP 37.1; O2SAT 95
[2022-11-13 04:00] VITALS: BMI 524.5
--- NOTE | 2022-11-13 04:41 | PC.NURSE ---
NO ACUTE CHANGES SINCE PREVIOUS ASSESSMENT. LUNG SOUNDS ARE CLEAR. REMAINS ON ROOM AIR. HAS RESTED INTERMITTENTLY THIS SHIFT. PT HAS C/O ABD PAIN X1 THIS SHIFT AND WAS MEDICATED PER MAR FOR PAIN. NO C/O N/V/D. PT REPORTS LIGHT SPOTTING SHE STATES THAT THERE IS NOTHING ON HER PAD BUT THE IS A SMALL AMOUNT OF RED BLOOD WHEN SHE WIPES. NO C/O CRAMPING. SURGICAL INCISIONS ARE C/D/I. REMAINS AFEBRILE. AMBULATED IN THE PERALES THIS SHIFT. CALL [facility] WITHIN REACH.
--- NOTE | 2022-11-13 05:00 | CA_ITS ---
APPROVED REPORT EXAM: Comprehensive 2D, Doppler, and color-flow Echocardiogram [employer] Producer: Sandy Morales, DIRK, RVS Ht: 5 ft 1 in Wt: 303lbs BSA: 2.25 BP: 135/90 mmHg Indications: murmur,Sepsis, Hx-covid, Obesity Echo Enhancing Agent Comments: Limited windows due to X-large body habitus. 2D Dimensions IVSd 1.05 cm LVEF (Visual) 72.50 % PWd 0.90 cm LA Volume 55.20 mL LVDd 4.38 cm LA Volume Index 24.50 mL/m2 (M/F) 16-34 LVDs 2.57 cm LVOT 1.85 cm (M/F) 1.5-2.5 M-Mode Dimensions LA Diam 3.30 cm (1.9-4.0) Ao Diam 2.91 cm (2.0-3.7) EPSs 0.27 cm TAPSE 2.15 (<1.7) LV Diastology E Decel Time 210.00 (160-240 msec) E/A Ratio 1.70 MED E' 11.30 (< 7 cm/sec) MED A' 8.30 cm/s E'/MED E' Ratio 8.48 (>14) LAT E' 12.50 (<10 cm/sec) LAT A' 6.80 cm/s E/LAT E' Ratio 7.66 (>14) Aortic Valve LVOT Max 94.00 (70-110 cm/s) LVOT VTI 21.49 cm AoV Peak Dexter. 137.00 (50-130 cm/s) AO Peak GR. 7.50 mmHg AO Mean GR. 3.70 (<5 mmHg) AO VTI 28.05 (18-25 cm) ANIBAL (VTI) 2.06 (2.5-4.5 cm2) Mitral Valve MV A Velocity 57.00 (40-130 cm/s) E/A Ratio 1.70 MV Decel. Time 210.00 (160-240 ms) MV PHT 63.00 ms Pulmonary Valve PV Peak Velocity 83.00 (50-150 cm/s) SC End VMAX 79.00 cm/s Tricuspid Valve TR P. Velocity 262.00 cm/s RAP Estimate 10.00 mmHg RVSP 37.40 mmHg Left Ventricle Left atrium is mildly enlarged, left ventricle is normal size mild concentric left ventricular hypertrophy, estimated ejection fraction 55% with no regional wall motion abnormality, diastolic parameters are inconclusive. Right Ventricle Right atrium and right ventricle are mildly enlarged with normal contractility. Aortic Valve Aortic valve is minimally thickened and fibrosed there is no aortic stenosis or aortic insufficiency. Mitral Valve Mitral valve leaflets are grossly normal, there is mild mitral regurgitation. Tricuspid Valve Tricuspid valve is not well visualized, there is moderate to severe tricuspid regurgitation. Calculated right ventricular systolic pressure 37 mmHg. Pulmonic Valve Pulmonic valve is poorly visualized. Great Vessels Aortic root is normal size. Inferior vena cava is poorly visualized. Pericardium No significant pericardial effusion noted. Conclusion 1. Biatrial enlargement, normal left ventricular size and mild concentric left ventricular hypertrophy, estimated ejection fraction 55% with no regional wall motion abnormality, diastolic parameters are inconclusive. 2. Mildly enlarged right ventricle with normal contractility. 3. Mild mitral and moderate to severe tricuspid regurgitation, tricuspid valve is not well visualized. Calculated right ventricular systolic pressure 37 mmHg. 4. No significant pericardial effusion. 5. Inferior vena cava is poorly visualized. Electronically signed by : Victor M Dovre MD 11/13/2022 21:29:34
[2022-11-13 05:58] LABS: Basophils # 0.1 K/mm3 (0-0.2); Basophils % 0.6 % (0.1-2.0); Eosinophils # 0.3 K/mm3 (0.0-0.4); Eosinophils % 2.9 % (0.1-12.0); Hematocrit 28.8 % (37.0-47.0); Hemoglobin 9.9 g/dL (12.2-16.2); Lymphocytes # 1.8 K/mm3 (0.7-4.5); Lymphocytes % 15.9 % (10-50); Mean Corpuscular HGB Conc 34.3 g/dL (31.8-35.4); Mean Corpuscular Hemoglobin 26.5 pg (27.0-31.2); Mean Corpuscular Volume 77.3 fl (81-99); Mean Platelet Volume 7.9 fl (7.4-10.4); Monocytes # 0.6 K/mm3 (0.1-1.0); Neutrophils # 8.7 K/mm3 (1.8-7.8); Neutrophils % 75.6 % (37.0-80.0); Platelet Count 417 K/mm3 (142-424); Red Blood Count 3.72 M/mm3 (4.20-5.40); Red Cell Distribution Width 13.1 % (11.5-17.5); White Blood Count 11.5 K/mm3 (4.8-10.8)
[2022-11-13 06:06] LABS: Sodium 137 mmol/L (136-145)
[2022-11-13 06:07] LABS: Chloride 104 mmol/L (98-107); Potassium 3.3 mmoL/L (3.5-5.1)
[2022-11-13 06:09] LABS: Alanine Aminotransferase 13 U/L (12-78); Alkaline Phosphatase 99 U/L (38-126); Anion Gap 8.3 mEq/L (5-15); Aspartate Amino Transferase 16 U/L (14-36); Bilirubin,Total 0.3 mg/dl (0.2-1.3); Blood Urea Nitrogen 7 mg/dl (7-17); Carbon Dioxide 28 mmol/L (22.0-30.0); Creatinine Clearance Estimated -92 mL/min (50-200); Estimated Glomerular Filt Rate 111 ml/min (>60); GFR (African American) 135 ML/MIN (>60)
[2022-11-13 06:10] LABS: Albumin Level 2.9 g/dl (3.5-5.0); Albumin/Globulin Ratio 0.9 (1.1-1.8); Calcium 8.3 mg/dl (8.4-10.2); Globulin 3.2 g/dL (1.3-3.2); Glucose 105 mg/dl (74-100); Total Protein,Serum 6.1 g/dl (6.3-8.2)
[2022-11-13 07:00] LABS: Vancomycin,Trough 18.8 ug/mL (5.0-10.0)
--- NOTE | 2022-11-13 07:12 | EXP.SURG.PN ---
Subjective Patient reports: no new complaints Narrative: Still has some right mid and lower abdominal discomfort. She states that she walked quite a bit yesterday . Exam Data for Last 24 hours Vital signs and Labs for Last 24 Hours: Temp Pulse Resp BP Pulse Ox 98.8 F 76 20 124/71 95 11/13/22 03:59 11/13/22 03:59 11/13/22 03:59 11/13/22 03:59 11/13/22 03:59 Laboratory Results - last 24 hr 11/12/22 07:43: WBC 11.5 H, RBC 3.84 L, Hgb 10.2 L, Hct 30.6 L, MCV 79.8 L, MCH 26.5 L, MCHC 33.2, RDW 13.4, Plt Count 380, MPV 8.4, Neut % (Auto) 77.3, Lymph % (Auto) 16.0, [place] % (Auto) 3.9, Eos % (Auto) 2.2, Baso % (Auto) 0.5, Neut # (Auto) 8.9 H, Lymph # (Auto) 1.8, [place] # (Auto) 0.5, Eos # (Auto) 0.3, Baso # (Auto) 0.1 11/12/22 07:43: Sodium 139, Potassium 3.6, Chloride 105, Carbon Dioxide 28, Anion Gap 9.6, BUN 4 L D, Creatinine 0.50 L, Estimated Creat Clear 141, Estimated GFR 137, Est GFR ( Amer) 166 D, Glucose 104 H, Calcium 8.4, Total Bilirubin 0.3, AST 21, ALT 17, Alkaline Phosphatase 104, Total Protein 6.3, Albumin 3.2 L D, Globulin 3.1, Albumin/Globulin Ratio 1.0 L 11/12/22 13:30: Sodium 139, Potassium 3.9, Chloride 104, Carbon Dioxide 28, Anion Gap 10.9, BUN 7 D, Creatinine 0.60, Estimated Creat Clear 118, Estimated GFR 111, Est GFR ( Amer) 135, Glucose 96, Calcium 8.6 11/12/22 13:30: Vancomycin Trough 16.5 H 11/13/22 05:38: Vancomycin Trough 18.8 H 11/13/22 05:38: WBC 11.5 H, RBC 3.72 L, Hgb 9.9 L, Hct 28.8 L, MCV 77.3 L, MCH 26.5 L, MCHC 34.3, RDW 13.1, Plt Count 417, MPV 7.9, Neut % (Auto) 75.6, Lymph % (Auto) 15.9, [place] % (Auto) 5.0, Eos % (Auto) 2.9, Baso % (Auto) 0.6, Neut # (Auto) 8.7 H, Lymph # (Auto) 1.8, [place] # (Auto) 0.6, Eos # (Auto) 0.3, Baso # (Auto) 0.1 11/13/22 05:38: Sodium 137, Potassium 3.3 L, Chloride 104, Carbon Dioxide 28, Anion Gap 8.3, BUN 7, Creatinine 0.60, Estimated Creat Clear -92 L, Estimated GFR 111, Est GFR ( Amer) 135, Glucose 105 H, Calcium 8.3 L, Magnesium 2.0, Total Bilirubin 0.3, AST 16, ALT 13, Alkaline Phosphatase 99, Total Protein 6.1 L, Albumin 2.9 L, Globulin 3.2, Albumin/Globulin Ratio 0.9 L I & O for Last 24 hours: Intake & Output 11/10/22 11/11/22 11/12/22 11/13/22 11:59 11:59 11:59 11:59 Intake Total 5470 / 5470 1390 / 1390 960 / 960 Output Total 300 / 450 1650 / 1650 4850 / 4850 600 / 600 Balance 5170 / 5020 -1650 / -1650 -3460 / -3460 360 / 360 Weight 275 lb 0.003 oz 310 lb 1 oz 304 lb 3.806 oz 303 lb 4 oz Microbiology Reports for the Last 24 Hours: Microbiology 11/10/22 20:45 Blood Blood Culture - Preliminary NO GROWTH AFTER 48 HOURS 11/10/22 20:45 Blood Blood Culture - Preliminary NO GROWTH AFTER 48 HOURS 11/09/22 11:45 Peritoneal Fluid - Abscess Gram Stain - Final 11/09/22 11:45 Peritoneal Fluid - Abscess Body Fluid Culture - Preliminary NO GROWTH AFTER 72 HOURS 11/11/22 08:31 Urine,Catheterized Urine Culture - Preliminary NO GROWTH AFTER 24 HOURS Constitutional Constitutional: no acute distress *Routine Respiratory Exam Respiratory: Absent respiratory distress *Routine Cardiovascular Exam Cardiovascular: Absent tachycardia *Routine Abdominal Exam Abdominal: Present soft and tenderness (Stable postoperative tenderness.) Progress Note: A&P Assessment and plan (1) Abnormal CT of the abdomen: Status: Acute Assessment and plan: Appendicitis remains unlikely. Continue management as per PEDIATRIC MEDICAL ASSISTANT and Hospitalist Service. (2) S/P laparoscopy: Status: Acute (3) Abdominal pain: Status: Acute (4) TOA (tubo-ovarian abscess): Status: Acute (5) Sepsis: Problem details: Resolved Status: Resolved (6) Volume overload: Status: Acute (7) Hypertension: Status: Acute (8) Morbid obesity with body mass index (BMI) of 40.0 or higher: Status: Acute (9) UTI (urin
[2022-11-13 08:00] VITALS: BP 133/71; PULSE 97; RESP 18; TEMP 36.7; O2SAT 97
--- NOTE | 2022-11-13 09:55 | EXP.ACUTE.PN ---
Subjective *Date: 11/13/22 *Time: 09:55 Interval history: Patient ambulating independently around the unit. Remains afebrile and hemodynamically stable. Overall doing well. Responding appropriately to antibiotic regimen. Having multiple bowel movements a day, suspect secondary to antibiotics. Still having mild vaginal bleeding consistent with menstrual cycle. Stable on room air, no chest pain, shortness of breath, nausea orPain. Medical Exam Vital signs and Labs for Last 24 Hours: Vital Signs Temp Pulse Resp BP Pulse Ox 11/13/22 08:00 98.1 F 97 H 18 133/71 97 11/13/22 03:59 98.8 F 76 20 124/71 95 11/12/22 19:45 98.4 F 80 20 127/62 91 L 11/12/22 15:34 98.6 F 76 16 134/88 98 Intake and Output 11/12/22 11/13/22 11/13/22 23:59 07:59 15:59 Intake Total 480 / 1990 120 / 120 Output Total 300 / 3500 0 / 0 0 / 0 Balance 180 / -1510 0 / 120 120 / 120 Intake: Intake, Oral Amount 480 / 1440 120 / 120 Output: Output, Urine Amount 300 / 3500 0 / 0 0 / 0 Other: Number of Unmeasured Voids 1 Weight 137.552 kg Patient Weight 11/13/22 23:59 Weight 137.552 kg Laboratory Results - last 24 hr 11/12/22 13:30: Sodium 139, Potassium 3.9, Chloride 104, Carbon Dioxide 28, Anion Gap 10.9, BUN 7 D, Creatinine 0.60, Estimated Creat Clear 118, Estimated GFR 111, Est GFR ( Amer) 135, Glucose 96, Calcium 8.6 11/12/22 13:30: Vancomycin Trough 16.5 H 11/13/22 05:38: Vancomycin Trough 18.8 H 11/13/22 05:38: WBC 11.5 H, RBC 3.72 L, Hgb 9.9 L, Hct 28.8 L, MCV 77.3 L, MCH 26.5 L, MCHC 34.3, RDW 13.1, Plt Count 417, MPV 7.9, Neut % (Auto) 75.6, Lymph % (Auto) 15.9, [place] % (Auto) 5.0, Eos % (Auto) 2.9, Baso % (Auto) 0.6, Neut # (Auto) 8.7 H, Lymph # (Auto) 1.8, [place] # (Auto) 0.6, Eos # (Auto) 0.3, Baso # (Auto) 0.1 11/13/22 05:38: Sodium 137, Potassium 3.3 L, Chloride 104, Carbon Dioxide 28, Anion Gap 8.3, BUN 7, Creatinine 0.60, Estimated Creat Clear -92 L, Estimated GFR 111, Est GFR ( Amer) 135, Glucose 105 H, Calcium 8.3 L, Magnesium 2.0, Total Bilirubin 0.3, AST 16, ALT 13, Alkaline Phosphatase 99, Total Protein 6.1 L, Albumin 2.9 L, Globulin 3.2, Albumin/Globulin Ratio 0.9 L I & O for Labs for Last 24 Hours: Intake & Output 11/10/22 11/11/22 11/12/22 11/13/22 23:59 23:59 23:59 23:59 Intake Total 3670 / 3670 360 / 360 1989 120 / 120 Output Total 450 / 450 3350 / 3350 3500 / 3500 0 / 0 Balance 3220 / 3220 -2990 / -2990 -1510 / -1510 120 / 120 Weight 140.642 kg 138.3 kg 138 kg 137.552 kg Microbiology Reports for the Last 24 Hours: Microbiology 11/10/22 20:45 Blood Blood Culture - Preliminary NO GROWTH AFTER 48 HOURS 11/10/22 20:45 Blood Blood Culture - Preliminary NO GROWTH AFTER 48 HOURS 11/09/22 11:45 Peritoneal Fluid - Abscess Gram Stain - Final 11/09/22 11:45 Peritoneal Fluid - Abscess Body Fluid Culture - Preliminary NO GROWTH AFTER 72 HOURS 11/11/22 08:31 Urine,Catheterized Urine Culture - Preliminary NO GROWTH AFTER 24 HOURS Constitutional: Present no acute distress, mild distress and morbidly obese Head: Present atraumatic and normocephalic ENT: Present normal exam Neck: Present full ROM Respiratory: Present CTA bilaterally and normal respiratory effort; Absent accessory muscle use, rhonchi, wheezes or crackles Cardiac: Present Reg Rate and Rhythm GI: Present soft, tenderness (Minimal in right upper quadrant, continues to improve daily) and normal bowel sounds; Absent distention, guarding or rebound Comments:: Surgical site clean dry and intact at umbilicus, no drainage Extremities: Present normal inspection, full ROM and edema (trace) Skin: Present intact; Absent cyanosis or erythema Neuro: Present Grossly Intact, alert, awake, oriented x 3 and moves all extremities Assessment and Plan *Assessment and plan (1) Sepsis: Probl
[2022-11-13 11:19] VITALS: BMI 48.7
--- NOTE | 2022-11-13 12:44 | P.PN_ITS ---
Subjective *Date: 11/13/22 *Time: 12:44 Medical Exam Vital signs and Labs for Last 24 Hours: Vital Signs Temp Pulse Resp BP Pulse Ox 11/13/22 08:00 98.1 F 97 H 18 133/71 97 11/13/22 03:59 98.8 F 76 20 124/71 95 11/12/22 19:45 98.4 F 80 20 127/62 91 L 11/12/22 15:34 98.6 F 76 16 134/88 98 Intake and Output 11/12/22 11/13/22 11/13/22 23:59 07:59 15:59 Intake Total 480 / 1990 120 / 120 Output Total 300 / 3500 0 / 0 0 / 0 Balance 180 / -1510 0 / 120 120 / 120 Intake: Intake, Oral Amount 480 / 1440 120 / 120 Output: Output, Urine Amount 300 / 3500 0 / 0 0 / 0 Other: Number of Unmeasured Voids 1 Weight 137.552 kg 137.552 kg Patient Weight 11/13/22 23:59 Weight 137.552 kg Laboratory Results - last 24 hr 11/12/22 13:30: Sodium 139, Potassium 3.9, Chloride 104, Carbon Dioxide 28, Anion Gap 10.9, BUN 7 D, Creatinine 0.60, Estimated Creat Clear 118, Estimated GFR 111, Est GFR ( Amer) 135, Glucose 96, Calcium 8.6 11/12/22 13:30: Vancomycin Trough 16.5 H 11/13/22 05:38: Vancomycin Trough 18.8 H 11/13/22 05:38: WBC 11.5 H, RBC 3.72 L, Hgb 9.9 L, Hct 28.8 L, MCV 77.3 L, MCH 26.5 L, MCHC 34.3, RDW 13.1, Plt Count 417, MPV 7.9, Neut % (Auto) 75.6, Lymph % (Auto) 15.9, [place] % (Auto) 5.0, Eos % (Auto) 2.9, Baso % (Auto) 0.6, Neut # (Auto) 8.7 H, Lymph # (Auto) 1.8, [place] # (Auto) 0.6, Eos # (Auto) 0.3, Baso # (Auto) 0.1 11/13/22 05:38: Sodium 137, Potassium 3.3 L, Chloride 104, Carbon Dioxide 28, Anion Gap 8.3, BUN 7, Creatinine 0.60, Estimated Creat Clear -92 L, Estimated GFR 111, Est GFR ( Amer) 135, Glucose 105 H, Calcium 8.3 L, Magnesium 2.0, Total Bilirubin 0.3, AST 16, ALT 13, Alkaline Phosphatase 99, Total Protein 6.1 L, Albumin 2.9 L, Globulin 3.2, Albumin/Globulin Ratio 0.9 L I & O for Labs for Last 24 Hours: Intake & Output 11/10/22 11/11/22 11/12/22 11/13/22 23:59 23:59 23:59 23:59 Intake Total 3670 / 3670 360 / 360 1989 120 / 120 Output Total 450 / 450 3350 / 3350 3500 / 3500 0 / 0 Balance 3220 / 3220 -2990 / -2990 -1510 / -1510 120 / 120 Weight 140.642 kg 138.3 kg 138 kg 137.552 kg Microbiology Reports for the Last 24 Hours: Microbiology 11/11/22 08:31 Urine,Catheterized Urine Culture - Final NO GROWTH AFTER 48 HOURS 11/10/22 20:45 Blood Blood Culture - Preliminary NO GROWTH AFTER 48 HOURS 11/10/22 20:45 Blood Blood Culture - Preliminary NO GROWTH AFTER 48 HOURS 11/09/22 11:45 Peritoneal Fluid - Abscess Gram Stain - Final 11/09/22 11:45 Peritoneal Fluid - Abscess Body Fluid Culture - Preliminary NO GROWTH AFTER 72 HOURS The patient's infection will respond to the chosen ABx?: Yes (BLOOD AND URINE CULTURES NO GROWTH) Is the patient receiving the right drug, dose, and route?: Yes Could a more targeted ABx be ordered?: No
--- NOTE | 2022-11-13 13:08 | EXP.PHA.CONS ---
Pharmacy Consult Date: 11/13/22 Time: 13:09 Referring provider: DR. MCGOVERN Reason for Consult:: VANCOMYCIN LEVEL Allergies Allergy/AdvReac Type Severity Reaction Status Date / Time No Known Allergies Allergy Verified 11/09/22 03:46 Home Medications Medication Instructions Recorded Confirmed Type ferrous gluconate 240 mg (27 mg 240 mg PO BID Supplement 11/09/22 11/09/22 History iron) tablet (Ferate) hydrochlorothiazide 12.5 mg tablet 12.5 mg PO BID Hypertension 11/09/22 11/09/22 History New Prescriptions to Start Prescriptions: Height: 1.68 m Weight: 137.552 kg Laboratory Results:: Laboratory Results - last 24 hr 11/12/22 13:30: Sodium 139, Potassium 3.9, Chloride 104, Carbon Dioxide 28, Anion Gap 10.9, BUN 7 D, Creatinine 0.60, Estimated Creat Clear 118, Estimated GFR 111, Est GFR ( Amer) 135, Glucose 96, Calcium 8.6 11/12/22 13:30: Vancomycin Trough 16.5 H 11/13/22 05:38: Vancomycin Trough 18.8 H 11/13/22 05:38: WBC 11.5 H, RBC 3.72 L, Hgb 9.9 L, Hct 28.8 L, MCV 77.3 L, MCH 26.5 L, MCHC 34.3, RDW 13.1, Plt Count 417, MPV 7.9, Neut % (Auto) 75.6, Lymph % (Auto) 15.9, [place] % (Auto) 5.0, Eos % (Auto) 2.9, Baso % (Auto) 0.6, Neut # (Auto) 8.7 H, Lymph # (Auto) 1.8, [place] # (Auto) 0.6, Eos # (Auto) 0.3, Baso # (Auto) 0.1 11/13/22 05:38: Sodium 137, Potassium 3.3 L, Chloride 104, Carbon Dioxide 28, Anion Gap 8.3, BUN 7, Creatinine 0.60, Estimated Creat Clear -92 L, Estimated GFR 111, Est GFR ( Amer) 135, Glucose 105 H, Calcium 8.3 L, Magnesium 2.0, Total Bilirubin 0.3, AST 16, ALT 13, Alkaline Phosphatase 99, Total Protein 6.1 L, Albumin 2.9 L, Globulin 3.2, Albumin/Globulin Ratio 0.9 L Medical History: Medical History (Updated 11/12/22 @ 16:45 by Alvina Gordillo DO) Hypertension Iron deficiency anemia Assessment and Plan Assessment and plan all Dx Assessment and Plan for all problems:: PATIENT'S VANCOMCYIN TROUGH LEVEL WAS 18.8 MCG/ML THIS AM. RECOMMEND CONTINUING WITH VANCOMYCIN 2000 MG Q8H AT THIS TIME.
--- NOTE | 2022-11-13 13:10 | EXP.DC.SUM ---
General Admission date:: 11/09/22 Discharge date: 11/13/22 HPI HPI HPI: Forwarded from hospitalist consultation: Ms. Joanie Samuels is a 37-year-old female with a past medical history that is positive for HTN and Iron Deficieny Anemia. She presented to [facility] on 11/09/2022 with complaints of abdominal pain. During work-up for her abdominal pain in the ER on admission on 11/[address] of the abdomen and pelvis that showed a bilateral adnexal mass and ultrasound was recommended as further evaluation. On Ultrasound, there was noted to be a left ovarian cyst measuring 4.4 cm and a moderate amount of complex free fluid in the cul-de-sac and a 17 mm echogenic focus in the cul-de-sac. She was then taken to the OR and underwent a diagnostic laparoscopy and operative findings showed a large Right Tubo-Ovarian Abscess, edema of the right fallopopian tube, extensive abdominal and pelvic adhesions, small left ovarian cyst and a copious amount of purulent drainage. She was placed on Amipcillin, Clindamycin and Gentamycin. During the evening of 11/10 the patient had episodes of Shortness of air, Abdominal Pain, Tachycardia and Hypotension. She also had a WBC that had slightly increased from prior day to 17.9. She was initiated on Fluids due to concern for Sepsis. She had CTA of the chest, CT of the abdomen, blood cultures drawn. CTA of the chest showed a mildly enlarged heart with moderatly dilated right atrium and ventricles with contrast reflux into the hepatic veins suggestive of CHF. On the CT of the abdomen and pelvis the Appendix could not be appropriately visualized, but what appeared to be the appendix appeared mildly thickened, there was a small volume of intrapelvic free fluid and mild to moderate soft tissue stranding edema that appeared to be consistent with volume overload, anasarca. Hospital Medicine was consulted due to concern for Sepsis and Volume Overload. Spoke with INSTALLATION SPECIALIST Attending due to findings on CT. Agreed for Surgical consult for am. Will broaden antibiotics, BNP ordered and was elevated. Echo ordered for am. Hospital Course Hospital Course Hospital Course: Intitial antibiotic treatment with amp/gent/clinda per usual TOA pathogens Antibiotic coverage was changed on POD #1 and she was transferred to [facility] floor for cardiac evaluation Hospitalist consult obtained Additional labs and imaging obtained to evaluate cardiac concerns, with no significant findings She has continued to improve clinically and is discharged home on POD #4 in stable condition WBC 11.5 and she has remained afebrile She is ambulating and voiding without difficulty Postop pain has been minimal She is tolerating a regular diet She will complete 14 days antibiotic therapy Exam Data for Last 24 hours Vital signs and Labs for Last 24 Hours: Temp Pulse Resp BP Pulse Ox 98.1 F 97 H 18 133/71 97 11/13/22 08:00 11/13/22 08:00 11/13/22 08:00 11/13/22 08:00 11/13/22 08:00 Laboratory Results - last 24 hr 18 13:30: Sodium 139, Potassium 3.9, Chloride 104, Carbon Dioxide 28, Anion Gap 10.9, BUN 7 D, Creatinine 0.60, Estimated Creat Clear 118, Estimated GFR 111, Est GFR ( Amer) 135, Glucose 96, Calcium 8.6 18 13:30: Vancomycin Trough 16.5 H 11/13/22 05:38: Vancomycin Trough 18.8 H 11/13/22 05:38: WBC 11.5 H, RBC 3.72 L, Hgb 9.9 L, Hct 28.8 L, MCV 77.3 L, MCH 26.5 L, MCHC 34.3, RDW 13.1, Plt Count 417, MPV 7.9, Neut % (Auto) 75.6, Lymph % (Auto) 15.9, [place] % (Auto) 5.0, Eos % (Auto) 2.9, Baso % (Auto) 0.6, Neut # (Auto) 8.7 H, Lymph # (Auto) 1.8, [place] # (Auto) 0.6, Eos # (Auto) 0.3, Baso # (Auto) 0.1 11/13/22 05:38: Sodium 137, Potassium 3.3 L, Chloride 104, Carbon Dioxide 28, Anion Gap 8.3, BUN 7, Creatinine 0.60, Estimated Creat Clear -92 L, Estimated GFR 111, Est GFR ( Amer) 135, Glucose 105 H, Calcium 8.3 L, Magnesium
--- NOTE | 2022-11-13 15:18 | HMH.PHAINT1 ---
Pharmacy Intervention Comments: DISCHARGE MEDICATION COUNSELING PROVIDED. DISCUSSED STARTING THE FOLLOWING: -TYLENOL (EVERY FOUR HOURS NEEDED FOR PAIN, PATIENT FAMILIAR, NO QUESTIONS) -IBUPROFEN (EVERY 6 HOURS NEEDED FOR PAIN, PATIENT FAMILIAR, NO QUESTIONS) -LEVOFLOXACIN (ANTIBIOTIC, DAILY, N/V/D POSSIBLE, TAKE WITH FOOD) -METRONIDAZOLE (ANTIBIOTIC, FOUR TIMES A DAY, NAUSEA AND HEADACHE POSSIBLE, NO ALCOHOL OR ALCOHOL CONTAINING PRODUCTS WHILE ON THIS MEDICATION) -OXYCODONE (FOR PAIN, EVERY 4 HOURS NEEDED, IF NOT IN PAIN DONT TAKE, MAY CAUSE SEDATION,CONSTIPATION, RESPIRATORY DEPRESSION, DONT DRIVE OR OPERATE MACHINERY UNTIL YOU KNOW HOW IT WILL AFFECT YOU PATIENT VERBALIZED NO QUESTIONS AT THIS TIME.
--- NOTE | 2022-11-14 15:15 | SW/DCPLANNER ---
Follow up phone call was made with this patient: patient received all medications and is aware of follow up appointments. Patient stated that she will call Dr Clay office and change follow up apt date and time due to schedule conflict.
== END 2022-11-13 15:52 | disposition home or self-care (01) | DRG 981 ==
LOC: ER 10:45 → OR 12:28 → OB 11-10 00:10 → 2ND 11-10 21:48 → OB 11-13 09:18
PROVIDERS: Internal Medicine Adolescent Medicine; Nurse Practitioner Family; Obstetrics & Gynecology; Admitting Provider Obstetrics & Gynecology; Emergency Provider Emergency Medicine; PCP Nurse Practitioner Family; Visit Provider Obstetrics & Gynecology
PROC: 0W9J0ZZ Drainage of Pelvic Cavity, Open Approach (ICD-10-PCS; CPT 49320; principal; 2022-11-09 10:35)
DX: N70.93 Salpingitis and oophoritis, unspecified (principal); A41.9 Sepsis, unspecified organism; I50.31 Acute diastolic (congestive) heart failure; N39.0 Urinary tract infection, site not specified; Z68.42 Body mass index [BMI] 45.0-49.9, adult; E66.01 Morbid (severe) obesity due to excess calories; N85.2 Hypertrophy of uterus; I11.0 Hypertensive heart disease with heart failure
CPT/HCPCS: 58822; 36415; 71045; 71275; 74177; 76830; 80048; 80053; 80170; 80202; 81001; 82150; 83605; 83690; 83735; 83880; 84439; 84443; 84484; 84703; 85007; 85025; 87040; 87070; 87086; 87205; 93005; 93306; 99285; G0378; J0290; J2405; J2710; J3370; Q9967

== ENCOUNTER → 2023-06-04 15:12 | Outpatient (CLI) | payer BC, SELFPAY ==
--- NOTE | 2023-06-04 15:12 | US_ITS ---
PROCEDURE: US TRANSVAGINAL CLINICAL INDICATION: pelvic pain COMPARISON: US TRANSVAGINAL from 11/09/2022 FINDINGS: UTERUS: 9cm x 5cmx 4cm with a combined endometrial thickness of 6.3mm. LEFT OVARY: [id number] with a volume of 4.8ml. RIGHT OVARY: 5cmx [id number] with a volume of 25.9ml. There is a 3.0 cm x 3.1 cm by 2.4 cm follicle. The ovary has a polycystic appearance. Both ovaries are seen and appear normal. Doppler flow to both ovaries are seen. There is no fluid in the cul-de-sac. IMPRESSION: 1. Uterus is anteverted and bulky in size. The endometrium is 6.3 mm. 2. Both ovaries are seen and appear normal. There is a prominent follicle measuring 3.1 cm on the right ovary. The right ovary has a polycystic appearance. 3. There is a trace amount of fluid anterior to the uterus 1 cm by 1 cm in size. 4. The previously described hemorrhagic fluid in the cul-de-sac and hemorrhagic ovarian cystic areas have completely resolved. Dictated by: Ruy Oh MD 06/05/2023 09:11 Ruy Oh MD in [facility] 06/05/2023 09:11
== END ==
LOC: RAD 15:12
PROVIDERS: PCP Nurse Practitioner Family; Visit Provider Obstetrics & Gynecology
DX: R10.2 Pelvic and perineal pain (principal); N92.0 Excessive and frequent menstruation with regular cycle
CPT/HCPCS: 76830